=== PATIENT | male | born 1930 | race Caucasian/White ===

== ENCOUNTER 2016-08-07 14:52 | Inpatient (IN) | payer MEDICARE, OTHER ==
[~2016-08-07] VITALS: Ht 172.7 cm; Wt 157.9 kg
[2016-08-07] VITALS (7 sets, daily range): BP systolic 92–162; BP diastolic 50–91; PULSE 71–90; RESP 22–24; O2SAT 87–98
[2016-08-07] MEDS ORDERED: 0.9% Sodium Chloride (Chilled) 500 ML IV PRN (16:15)
[2016-08-07] MEDS ORDERED: Calcium GLUCOnate 10% (Gm) 1 Gm/10 mL Inj IV PRN (16:15)
[2016-08-07] MEDS ORDERED: Cisatracurium 2,000 mCg/mL 10 mL Inj IV PRN (16:15)
[2016-08-07] MEDS ORDERED: Senna-Docusate 8.6-50 mg Tablet PO PRN (16:15)
[2016-08-07] MEDS ORDERED: Acetaminophen IV 1,000 MG in IV Premix 1 EACH IV PRN (16:15)
[2016-08-07] MEDS ORDERED: Ondansetron 2 mg/mL 2 mL Inj IVPUSH PRN (16:15)
[2016-08-07] MEDS ORDERED: 0.9% Sodium Chloride (Chilled) 2,000 ML IV ONE (16:15)
[2016-08-07] MEDS ORDERED: Lactated Ringer's 1,000 ML IV PRN (16:15)
[2016-08-07] MEDS ORDERED: Alum-Mag Hydrox-Simeth 30 mL Suspension PO PRN (16:15)
[2016-08-07] MEDS ORDERED: Magnesium Sulf 4 Gm/100 mL H2O 4 GM in IV Premix 1 EACH IV PRN (16:15)
[2016-08-07] MEDS ORDERED: Polyethylene Glycol (PEG) 17 Gm Powder PO PRN (16:15)
[2016-08-07] MEDS ORDERED: Propofol 10,000 mCg/mL 100 mL Inj ONE (16:16)
[2016-08-07] MEDS ORDERED: fentaNYL 2,500 mCg/250 mL Premix IV ONE (16:18)
[2016-08-07] MEDS ORDERED: Sodium Chloride LOK Flush 10 mL Syringe IVFLUSH PRN ×2 (16:25)
[2016-08-07] MEDS: Propofol Inj 1,000,000 MCG in IV Premix 1 EACH IV PRN ×2 (16:30→20:12)
[2016-08-07] MEDS: fentaNYL 2,500 mCg/250 mL 2,500 MCG in IV Premix 1 EACH IV PRN (16:31)
--- NOTE | 2016-08-07 16:46 | ABG ---
DateTimeAnalyzed 16:41:00 -_ pH ____7.311 - 7.350 7.450 pCO2 ___58.1__ -mmHg 35.0 45.0 pO2 ___78.2__ -mmHg 69.0 116 HCO3- ___28.4__ -mmol/L 22.0 26.0 ABE ____1.0__ -mmol/L -2.0 2.0 tHb ___16.3__ -g/dL O2Hb ___91.2__ -% COHb ____1.3__ -% MetHb ____0.9__ -% sO2 ___93.3__ -% 25.0 FIO2 __100.0__ -% PEEP ____5.0__ -cmH2O Set_RR ___20.0__ -b/min Vt __500.0__ -L Drawn By NB - Date/Time Notified____ 16:46:00 -_ Spontaneous_RR ___24.0__ -b/min Oxygen Device 1 VENTILATOR - Notified By NB - Notified Whom ___DR. GODOY - B 762 -mmHg tO2 ___20.9__ -Vol% Zia test _Positive -
--- NOTE | 2016-08-07 17:41 | DRSVH ---
PROCEDURE: X-RAY PICC LINE PLACEMENT BY NURSE ([id number]) INDICATIONS: central line for pressors; IJ not available COMPARISON: None. FINDINGS: PICC was placed by the intravenous therapy team from the right side. Fluoroscopic spot fi lm demonstrates tip of PICC projecting in the cavoatrial. IMPRESSION: Tip of PICC lies within the cavoatrial junction. Dictated by: Robb Perez M.D. on 08/07/2016 at 17:39 Approved by: Robb Perez M.D. on 08/07/2016 at 17:40
[2016-08-07 17:48] LABS: BASOPHILS % (AUTO) 0.1 % (0-3); EOSINOPHILS % (AUTO) 0 % (0-5); MONOCYTES % (AUTO) 9.2 % (4-12); Mean Corpuscular Hemoglobin 32.2 pg (27.0-35.0); Mean Corpuscular Volume 105.6 fL (81-100); Platelet Count 168 bil/L (150-400)
[2016-08-07] MEDS ORDERED: Norepinephrine 8,000 mCg/250 mL NS Premix IV ONE (17:51)
[2016-08-07 18:02] LABS: INR 1.47 ratio
[2016-08-07 18:34] LABS: Magnesium 1.9 mg/dL (1.6-2.6); Phosphorus 4.4 mg/dL (2.5-4.9)
[2016-08-07 18:37] LABS: TROPONIN T 0.169 ug/L (0.0-0.011)
[2016-08-07] MEDS: Piperacillin-Tazo 3.375 Gm Inj 3.375 GM in Dextrose 5% Minibag Plus 50 ML IV SCH (19:02)
[2016-08-07] MEDS: 0.9% Sodium Chloride 1,000 ML IV SCH ×2 (19:02→20:11)
[2016-08-07] MEDS: 0.9% Sodium Chloride (Chilled) 1,000 ML IV PRN ×2 (19:03→20:11)
--- NOTE | 2016-08-07 19:08 | NUR ---
Admit: Pt found down at home by at approx 1100, CPR by EMS, intubated in field and sent to [facility]. Transferred to [facility] at approx 1630. On arrival, temp 36.8, no central line. Picc line placed, 2L chilled NS infused, cooling protocol initiated, current temp 34.9. Propofol/Fentanyl for sedation, see CCU flowsheet for details. at bedside, updated on plan of care, doesn't appear to understand severity of pt's condition despite multiple explanations. Care ongoing.
[2016-08-07] MEDS: Cisatracurium Inj 200,000 MCG in 0.9% Sodium Chloride-Pha MIX 100 ML IV SCH (20:10)
[2016-08-07] MEDS: Norepineph 8,000 mCg/250 mL NS 8,000 MCG in IV Premix 1 EACH IV PRN ×2 (20:10→20:58)
[2016-08-07] MEDS: LacriLube S.O.P. 3.5 Gm Ophthalmic Ointment BOTH_EYES SCH (20:30)
[2016-08-07] MEDS ORDERED: Insulin Human REGular Inj 100 UNIT in 0.9% Sodium Chloride-Pha MIX 100 ML IV SCH (20:44)
--- NOTE | 2016-08-07 20:54 | PCM.HPMED ---
Subjective Date of Service Aug 07, 2016 Primary Provider: Admitting Physician: Griselda Al DO Primary Care Physician: Kyle Maynard MD Attending Physician: Griselda Al DO Chief Complaint: Cardiac arrest History of Present Illness: 86 -year-old male with hypertension, hyperlipidemia, type II diabetes, and uncharacterized hepatitis, who transferred from [facility] after being found unconscious and in respiratory arrest by his . History is obtained by the . She states that this morning around 11:00 she went to check on her who is lying in bed and noticed his tongue was protruding from his mouth. She noticed he was not breathing and began CPR on the bed. She called 911 and EMS arrived reporting asystole. Patient was given 2 g of epinephrine with ROSC, intubated in the field, and transported to [facility]. On arrival the patient was not responsive. Cooling protocol was initiated, patient was placed on dopamine via peripheral line and transferred to [facility] was initiated. On arrival to [facility] it was noted that the patient did not have central line access , was warm and not sedated, and it was reported that the dopamine did not start running in transport. Prior to transfer it was requested that the patient undergo CT of the head which was reported as negative. Prior labs are in the paper chart. Patient was started on propofol, fentanyl, cooling protocol, and Nimbex and norepinephrine were ordered for standby. On interview with the she states that the patient has fallen twice last week. The first time was at the top of a staircase which he fell down after syncopal episode, but did not seek medical attention. The second time was outside of [facility] where he had a syncopal episode, hitting his head but did not seek medical attention. Per the the patient was also been stating that he is going to multiple times over this last week. She states that he has had a negative review of systems except for some abdominal pain due to his nighttime beer drinking. She states he drinks 2 beers per night. Review of Systems: Complete review of systems performed; pertinent positives and negatives per HPI ; all other systems reviewed and are negative Allergies Coded Allergies: No Known Allergies (Unverified , 08/07/16) Home Medications Med rec is currently being worked on; do not have current medication list [facility] Hypertension Hyperlipidemia Type II diabetes Uncharacterized hepatitis Psoriasis Surgical History none reported by ; attempts to reach her after she left the hospital were unsuccessful Family History patient intubated Social History Hx Alcohol Use: Yes Hx Substance Use: Yes Smoking Status: Never Smoker Living Arrangement: with Family Exam Vital Signs 36.8, 89, 24, 94/50 (65), 95%, FiO2 100 mechanical ventilation Exam General: Patient intubated and sedated HEENT: Pupils constricted but reactive; mucous membranes moist Lymph: Difficult to palpate due to obesity Cardio: Difficult to auscultate but appears regular Respiratory: Coarse breath sounds throughout Abdomen: morbidly obese; bowel sounds quiet Extremities: Advanced onychomycosis; moderate pitting edema Neuro: Patient sedated Psych: Patient sedated Skin: No rashes Musculoskeletal: Patient sedated and unable to follow commands Lab and Diagnostics X-Rays, CTs and MRIs From [facility] CTA chest 1 no pericardial effusion or mediastinal hematoma. Normal caliber of the thoracic aorta. Mediastinal widening on chest x-ray corresponds to prominent mediastinal fat. 2. Small bilateral pleural effusions with dependent atelectasis. 3. Arthrosclerosis including prominent coronary artery atherosclerosis. Read by Kyle Lawrence M.D. CT of the head 1. No intracranial bleed or mass effect. No acute findings Read by Kyle Lawrence M.D. Cervical spine without contrast 1. Multilevel degenerative disc disease cervical spine without evidence of cervical spine fracture Kyle Lawrence M.D. Assessment & Plan 86-year-old male who was found down by his and resuscitated in the field by EMS using epinephrine. Patient was intubated in the field and transferred to [facility] we underwent benign imaging started on cooling protocol that was interrupted due to transport. Acute hypoxic respiratory failure; present on admission; ongoing -Patient found down and intubated in the field; likely secondary to cardiac arrhythmia -Initial ABG at [facility] was 7.31, 58.1, 78.2, 28.4 on FiO2 of 100, PEEP of 5, respiratory rate of 20, and tied along the 500 -Adjustments were made to the vent and repeat ABG is pending Possible cardiac arrhythmia causing cardiac arrest; present on admission; ongoing -Patient has multiple syncopal episodes within the week as well as sense of impending doom -Patient was in 30 minutes before noted respiratory arrest; overall picture suggestive of arrhythmia -Initial troponin was elevated at 0.169; we will trend -EKG showed atrial fibrillation that [facility]; EKG pending -Cooling protocol reinitiated around 6 PM and ongoing -Nimbex, propofol, fentanyl, and norepinephrine -Blood cultures pending Acute kidney injury; present on admission; ongoing -Likely due to perfusion deficit or prerenal -Unknown baseline as this is the first time the patient has been to this hospital -Patient received fluid resuscitation -Will continue to track with BMPs during hypothermia protocol Anion gap metabolic acidosis; present on admission; ongoing -Lactic acid of 2.7 likely responsible for the AG of 15 -Patient received bolus of 1 L and NS -Will follow cooling protocol -blood cultures pending Acute leukocytosis; present on admission; ongoing -Patient arrived with a white count of 14 which is decreased from 15.2 at [facility] -Will continue to follow -Likely due to stress reaction Type II diabetes; present on admission; ongoing -Reported from [facility] -Patient on cooling protocol and insulin drip initiated -Will start basal and correctional once patient is off drip -Will check A1c Reported hepatitis with elevated transaminases and prolonged INR with possible cirrhosis; present on admission; ongoing -Patient's history is positive for hepatitis likely related to his chronic daily alcohol consumption, although disproportionate for acute hepatitis -Platelets 168, AST/berhane 20 141/136 -Hepatitis panel -US RUQ when off cooling Reported atrial fibrillation;present on admission; ongoing -EKG form [facility] reported at-fib -Repeat EKG had questionable junctional rhythm -Will follow Hypertension, chronic; present on admission; ongoing -Patient is currently hypotensive while on Nimbex, Propofol, and fentanyl Hyperlipidemia, chronic; present on admission; stable -Will continue home statins once med rec is completed Disposition: Patient admitted to the ICU with inpatient status with expected length of stay greater than 2 minutes due to severity of presentation, duration of treatment, and risk of adverse events. Information was severely limited due to records from [facility], and inability to contact after she left for the evening. left during patient intake and only a brief interview was possible. Case was discussed extensively with critical care (Dr. Conner). Pain Evaluation: Adequate Pain Control GI Prophylaxis: H2 joshua VTE Prophylaxis Indicated: Contraindicated Resuscitation Status: CPR: Attempt Resuscitation Time spent 90 minutes Attending Statement The patient was seen and examined together with Dr. Jimenez on 08/07/16 and I have added additional information to the note above. Corey Jimenez DO Aug 07, 2016 17:16 Griselda Al DO Aug 08, 2016 16:02
[2016-08-07] MEDS ORDERED: Dextrose 10% 250 ML IV PRN (21:05)
[2016-08-07] MEDS ORDERED: Glucose 40% Oral Gel 15 Gm Tube PO SCH (21:10)
--- NOTE | 2016-08-07 22:58 | ABG ---
DateTimeAnalyzed 22:52:00 -_ pH ____7.336 - pCO2 ___41.6__ -mmHg pO2 ___51.1__ -mmHg HCO3- ___21.6__ -mmol/L ABE ___-3.5__ -mmol/L tHb ___15.4__ -g/dL O2Hb ___79.8__ -% COHb ____1.1__ -% MetHb ____0.9__ -% sO2 ___81.4__ -% FIO2 __100.0__ -% PRVC 24 - PEEP ___12.0__ -cmH2O Vt __430.0__ -L Drawn By RN - Date/Time Notified____ 22:57:00 -_ Spontaneous_RR ___24.0__ -b/min Oxygen Device 1 VENTILATOR - Notified By BLF - Notified Whom JONA ARUNA RN -____ B 761 -mmHg tO2 ___17.2__ -Vol% Zia test N/A -
[2016-08-08] VITALS (11 sets, daily range): BP systolic 99–138; BP diastolic 59–77; PULSE 50–60; RESP 22–24; O2SAT 92–99
[2016-08-08] MEDS: Propofol Inj 1,000,000 MCG in IV Premix 1 EACH IV PRN ×5 (00:25→22:24)
[2016-08-08] MEDS: Piperacillin-Tazo 3.375 Gm Inj 3.375 GM in Dextrose 5% Minibag Plus 50 ML IV SCH ×4 (00:25→20:32)
[2016-08-08 02:09] LABS: Mean Corpuscular Hemoglobin 32.1 pg (27.0-35.0); Mean Corpuscular Volume 102.8 fL (81-100)
[2016-08-08 02:24] LABS: INR 1.84 ratio
[2016-08-08 02:31] LABS: Magnesium 1.8 mg/dL (1.6-2.6)
[2016-08-08 02:59] LABS: TROPONIN T 0.194 ug/L (0.0-0.011)
[2016-08-08] MEDS: Cisatracurium Inj 200,000 MCG in 0.9% Sodium Chloride-Pha MIX 100 ML IV SCH ×4 (03:38→22:55)
[2016-08-08] MEDS: 0.9% Sodium Chloride 1,000 ML IV SCH ×3 (04:03→22:08)
--- NOTE | 2016-08-08 05:15 | ABG ---
DateTimeAnalyzed 05:08:43 -_ pH ____7.390 - pCO2 ___34.7__ -mmHg pO2 ___40.3__ -mmHg HCO3- ___21.0__ -mmol/L 22.0 26.0 ABE ___-3.5__ -mmol/L tHb ___14.1__ -g/dL O2Hb ___70.0__ -% COHb ____1.3__ -% 1.5 MetHb ____0.1__ -% sO2 ___71.0__ -% FIO2 __100.0__ -% PRVC 24 - PEEP ___12.0__ -cmH2O Vt __430.0__ -L Drawn By RN - Date/Time Notified____ 05:15:00 -_ Spontaneous_RR 24 -b/min Oxygen Device 1 VENTILATOR - Notified By BLF - Notified Whom JONA ARUNA RN -____ K+ ____2.8__ -mmol/L tO2 ___13.9__ -Vol% Zia test N/A -
--- NOTE | 2016-08-08 05:21 | NUR ---
BP/RESP/BIS: At shift change pt's was hypotensive and Bis was 80-90s and would decrease with boluses of propofol. Pt was receiving fluid bolus for BP and cooling protocol. Pt was hard to ventilate and was alarming vent with low spo2. RT was called.Levophed was started and BP improved pt then received nimbex bolus and gtt was started at 2mcg/kg/min pt stopped moving and was easier to vent.. Levophed was titrated down and turned off as BP shot up to 190s/90s. approx 20min after nimbex bolus Bis was 0 monitor was trouble shoot and skin cleaned and new probe applied with same readings. Around 0300 pt required levophed and received NS bolus for low BP. BP then shot up and levo was stopped pt started having tremor like activity and Bis jumped up to 80s. Pt was give a bolus of nimbex and gtt was restarted Bis dropped back down to 0.
--- NOTE | 2016-08-08 07:13 | PCM.ADCARE ---
Advance Care Planning Note Plan: Purpose of encounter: Goals of care Parties in attendance: Patient's Dr. Al Diagnosis: Acute hypoxic respiratory failure Possible cardiac arrhythmia causing cardiac arrest Acute kidney injury Anion gap metabolic acidosis Acute leukocytosis Type II diabetes Reported hepatitis with elevated transaminases and prolonged INR with possible cirrhosis Reported atrial fibrillation Hypertension, chronic Hyperlipidemia, chronic Plan: The patient's is aware of the current diagnosis and would like to continue to be full code. The patient's understands that we will continue with intubation and pressors, and all measures involved with CPR. CODE STATUS: Full code Time spent with advanced care planning: Greater than 16 minutes Griselda Al DO Aug 08, 2016 07:13
[2016-08-08] MEDS: LacriLube S.O.P. 3.5 Gm Ophthalmic Ointment BOTH_EYES SCH ×5 (07:40→20:33)
[2016-08-08 08:18] LABS: Mean Corpuscular Hemoglobin 32.2 pg (27.0-35.0); Mean Corpuscular Volume 101.1 fL (81-100)
[2016-08-08 08:31] LABS: INR 1.55 ratio
[2016-08-08 08:52] LABS: Magnesium 1.7 mg/dL (1.6-2.6)
[2016-08-08 08:54] LABS: TROPONIN T 0.181 ug/L (0.0-0.011)
[2016-08-08] MEDS ORDERED: Artificial Tears 15 mL Ophthalmic Solution BOTH_EYES PRN (10:05)
--- NOTE | 2016-08-08 10:49 | NUR ---
Palliative Care Palliative Care received verbal order from Dr Huston 08/08/16 to assist with goals of care. Patient admitted 08/08/16. He lives in [place] with his . Clover Perera () [phone] Palliative Care to follow. Cielo Sanabria
--- NOTE | 2016-08-08 10:56 | DRSVH ---
PROCEDURE: X-RAY CHEST ONE VIEW, PORTABLE ([id number]) INDICATIONS: intubated TECHNIQUE: One view of the chest was acquired. COMPARISON: Outside Film, CR, XR CHEST 1VW (PORTABLE), 08/07/2016, 12:31. FINDINGS: Surgical changes and devices: ETT tip projected 2.4 cm above the jorge. A right PICC present projec michelle over the lower SVC. Lungs and pleura: Diffuse, widespread bilateral pulmonary interstitial and air space opacities are pr esent. Small right subpulmonic pleural effusion. No pneumothorax Mediastinum: Mediastinal contours appear normal. Heart size is normal. Bones and chest wall: No suspicious bony lesions. Overlying soft tissues appear unremarkable. Heal ed left seventh posterior lateral rib fracture. IMPRESSION: 1. Pulmonary edema and/or diffuse bilateral pneumonia. 2. ETT and right PICC in expected position. Dictated by: Shyam Solis [facility] Interpreted: Cheli Orosco MD on 08/08/2016 at 8:04 Approved by: Cheli Orosco M.D. on 08/08/2016 at 10:54
--- NOTE | 2016-08-08 11:02 | NUR ---
NUTRITION ASSESSMENT Assess: 86 YO M admitted to CCU with cardiac arrest, requiring intubation and currently on cooling protocol with plans to rewarm later this evening. Pt possibly having seizures. Pt has been NPO X 1 day. Palliative care consulted. PMHX: HTN, HLD, type 2 DM, psoriasis, hepatitis. DIET: NPO. LABS: BUN 57, Cr 2.93, Glu 147, Lactic acid 2.6, Ca 7.4, Phos 2.0, PAB 14, AST 136, ALT 130, Alb 2.8 MEDICATIONS: Nimbex, Propofol, Fentanyl, Pressor. GI: No BM noted. SKIN: No issues noted. ANTHROPOMETRICS: Wt: 138.6 kg, BMI 46.5 kg/m2, Admit wt: 138.6 kg. Adj. BW: 87.2 kg. ESTIMATED NEEDS: VENT/BMI Calories: 1520-2247 kcal/day (20-22 kcal/kg Adj. BW) Protein: 131-157 g/day (1.5-1.8 g/kg Adj. BW) Fluids: 2180 ml/day (~25 ml/kcal) NUTRITION DIAGNOSIS: 1) Inadequate oral intake related to decreased ability to consume sufficient energy as evidenced by NPO/Vent status. INTERVENTION: 1) Will await plan of care decisions. If pt remains intubated, recommend initiation of nutrition support. MONITOR/EVALUATE: NPO/Vent status, labs, POC, GI/nutrition status. Follow per high nutrition risk guidelines.
[2016-08-08] MEDS ORDERED: Magnesium Sulfate 2 Gm/50 mL Water Premix IV ONE (11:31)
[2016-08-08] MEDS: Famotidine Inj 20 MG in IV Premix 1 EACH IV SCH ×2 (11:43→20:32)
[2016-08-08] MEDS ORDERED: Chlorhexidine 0.12% 15 mL Oral Solution ONE (11:44)
--- NOTE | 2016-08-08 11:48 | PROG NOTE ---
[address] [address] PROGRESS NOTE PATIENT: MARK PANDA : 1930 MR#: [id number] ADMIT: 08/07/2016 JOB ID: [id number] DATE: 08/08/2016 PROBLEM: Asystolic cardiac arrest. SUBJECTIVE: None. OBJECTIVE: Temperature 33.2 on the cooling protocol. Pulse 54, respiratory rate 24 with ventilator set at 24. Blood pressure 120/71. O2 sat on FiO2 of 1, PEEP of 5, is 97%. I and O shows 1 L in, 0.025 mL out. Sedated and paralyzed on the ventilator. Chest has some coarse crackles throughout both lung reeder. Heart: Diminished breath sounds. Abdomen: Soft. Obese, quiet. Extremities: 2+ pretibial edema. Pupils are about 1 mm. Significant ecchymosis on the right. LABORATORY DATA: Shows a white count of 11,700, with no differential available. Hemoglobin 15.3. Platelet count 143,000, relatively stable. Sodium 145, potassium 3.9, chloride 110, CO2 is 18, BUN 56, creatinine 2.9 and stable. Lactic acid 1.9, down from a peak of 2.7. Calcium 7.1, albumin 2.6. Magnesium normal at 1.7. Total bilirubin normal at 0.5. AST mildly elevated at 124 and stable. ALT 118, moderately elevated and stable. CK is 219. Troponin-T is 0.181. INR 1.55. Blood culture is pending. MRSA nasal swab is negative by PCR. Sputum cultures are pending. Chest x-ray shows diffuse widespread interstitial and airspace opacities. Venous gases show a pH of 7.39, pCO2 of 34, bicarbonate 21. O2 saturation of mixed venous gases is 70%. ASSESSMENT: 1. Status post asystolic cardiac arrest. Unfortunately, cooling was delayed by the necessity for transfer. Currently cold. There has been some suggestion that he is having some seizures. I would therefore like to discontinue the Nimbex and see whether indeed he is seizing or not. If so, we will need to add Keppra, possibly Ativan to the medications. Unfortunately, this is pretty flat line. Whether this represents true brain activity or whether is an artifact of the technology is unclear at this point. 2. The patient with significant oxygen problems. However, sats are running in the mid 90s. I think we can decrease the FiO2. Pressure parameters are hard to evaluate in morbidly obese patients. It seems overall prognosis is quite poor. Remains cool until about eight o'clock tonight before we start rewarming. Above discussed with primary team. TIME SPENT: Time spent so far in critical care, 43 minutes.
--- NOTE | 2016-08-08 11:58 | ABG ---
DateTimeAnalyzed 11:46:40 -_ pH ____7.481 - 7.350 7.450 pCO2 ___27.8__ -mmHg 35.0 45.0 pO2 ___84.6__ -mmHg 69.0 116 HCO3- ___20.7__ -mmol/L 22.0 26.0 ABE ___-2.1__ -mmol/L tHb ___15.4__ -g/dL O2Hb ___96.0__ -% COHb ____1.3__ -% 1.5 MetHb ____0.0__ -% sO2 ___97.1__ -% FIO2 __100.0__ -% PRVC 24 - PEEP ___12.0__ -cmH2O Vt __440.0__ -L Drawn By gj - Date/Time Notified____ 11:58:00 -_ Spontaneous_RR 24 -b/min Oxygen Device 1 VENTILATOR - Notified By gj - Notified Whom ___DR. GODOY - K+ ____3.7__ -mmol/L tO2 ___20.7__ -Vol% Zia test _Positive -
[2016-08-08 14:03] LABS: Mean Corpuscular Hemoglobin 31.5 pg (27.0-35.0); Mean Corpuscular Volume 100.2 fL (81-100)
--- NOTE | 2016-08-08 14:03 | PCM.PNMED ---
Subjective Date of Service Aug 08, 2016 Subjective Trever Berry remains intubated and sedated on the ventilator, he has no response to external stimuli. No significant overnight events. Comprehensive ROS cannot be obtained in this intubated sedated patient on cooling protocol. Exam Vital Signs Vital Sign - Last Date Time Temp Pulse Resp B/P Pulse Ox O2 Delivery O2 Flow Rate FiO2 08/08/16 11:50 50 102/73 99 100 08/08/16 08:00 33.2 24 Mechanical Ventilator Intake and Output 08/07/16 08/07/16 08/08/16 Cumulative From/Thru 15:00 23:00 07:00 08/07/16 18:07 - 08/08/16 06:11 Intake Total 1036 ml 5895 ml 6931 ml Output Total 25 ml 75 ml 100 ml Balance 1011 ml 5820 ml 6831 ml Intake IV Total 1036 ml 5895 ml 6931 ml Output Urine Total 25 ml 75 ml 100 ml Exam GEN: Intubated and sedated patient, no response to external stimuli Neck: Short thick neck, R IJ in place HEENT: pupils miotic and non responsive, no movement tracking, ET tube in place , moderate facial edema CV: Very distant heart sounds due to habitus and overlying ventilator breath sounds Resp: Very coarse rhoncorous breath sounds throughout Abd: Morbidly obese abdomen, diminished BS 4Q Extr: Long hyperkeratotic toenails, cool extremities with weak peripheral pulses Neuro: Patient paralyzed and sedated, no response to external stimuli IVs and Medications IV Fluids NS @ 150 ml/hr 850 ml NS delivered with IV meds Medications Reviewed: Medications were reviewed in detail Lab and Diagnostics Item Value Date Time Red Blood Count 4.75 mil/mm3 08/08/16 08 Mean Corpuscular Volume 101.1 fL H 08/08/16 08 Mean Corpuscular Hemoglobin 32.2 pg 08/08/16 08 Mean Corpuscular Hemoglobin Concent 31.9 % L 08/08/16 08 Red Cell Distribution Width 16.2 % H 08/08/16 08 Estimat Glomerular Filtration Rate 22 mL/min 08/08/16 08 Lactic Acid Level 1.9 mmol/L 08/08/16 08 Calcium Level 7.1 mg/dL L 08/08/16 08 Magnesium Level 1.7 mg/dL 08/08/16 0800 Total Bilirubin 0.5 mg/dL 08/08/16 0800 Aspartate Amino Transf (AST/SGOT) 124 U/L H 08/08/16 0800 Alanine Aminotransferase (ALT/SGPT) 118 U/L H 08/08/16 08 Alkaline Phosphatase 38 U/L 08/08/16 08 Total Creatine Kinase 219 U/L 08/08/16 08 Creatine Kinase MB 9.0 ng/mL 08/08/16 08 Creatine Kinase MB % 4.1 % 08/08/16 08 Troponin T 0.181 ug/L *H 08/08/16 0800 Total Protein 4.8 g/dL L 08/08/16 08 Albumin 2.6 g/dL L 08/08/16 08 Result Diagram: 08/08/16 0808/08/16 08 Microbiology Blood cultures pending MRSA nasal swab pending X-Rays, CTs and MRIs CTA chest([facility]) 1 no pericardial effusion or mediastinal hematoma. Normal caliber of the thoracic aorta. Mediastinal widening on chest x-ray corresponds to prominent mediastinal fat. 2. Small bilateral pleural effusions with dependent atelectasis. 3. Arthrosclerosis including prominent coronary artery atherosclerosis. Read by Kyle Lawrence M.D. CT of the head([facility]) 1. No intracranial bleed or mass effect. No acute findings Read by Kyle Lawrence M.D. Cervical spine without contrast([facility]) 1. Multilevel degenerative disc disease cervical spine without evidence of cervical spine fracture Kyle Lawrence M.D. X-RAY CHEST ONE VIEW, PORTABLE IMPRESSION: 1. Pulmonary edema and/or diffuse bilateral pneumonia. 2. ETT and right PICC in expected position. Dictated by: Shyam Solis [facility] Interpreted: Cheli Orosco MD on 08/08/2016 at 8:04 Approved by: Cheli Orosco M.D. on 08/08/2016 at 10:54 . Additional Diagnostics DateTimeAnalyzed 11:46:40 -_ pH ____7.481 - 7.350 7.450 pCO2 ___27.8__ -mmHg 35.0 45.0 pO2 ___84.6__ -mmHg 69.0 116 HCO3- ___20.7__ -mmol/L 22.0 26.0 Assessment & Plan 86-year-old male who was found down by his and resuscitated in the field by EMS using epinephrine. Patient was intubated in the field and transferred to [facility] he underwent benign imaging started on cooling protocol that was interrupted due to transport. Patient with tonic clonic movements concerning for seizures, will plan to withdraw Nimbex to ascertain if there are underlying seizures. Acute hypoxic respiratory failure; present on admission; ongoing -Patient found down and intubated in the field; likely secondary to cardiac arrhythmia -Initial ABG at [facility] was 7.31, 58.1, 78.2, 28.4 on FiO2 of 100, PEEP of 5, respiratory rate of 20, and tidal volume 500 -Adjustments were made to the vent and ABG repeated with results as above. Possible cardiac arrhythmia causing cardiac arrest; present on admission; ongoing -Patient has multiple syncopal episodes within the week as well as sense of impending doom -Patient was down for 30 minutes before noted respiratory arrest; overall picture suggestive of arrhythmia -Initial troponin was elevated at 0.169; continue to trend -EKG showed atrial fibrillation that [facility] -Cooling protocol reinitiated around 6 PM 08/07/16 and, rewarming 8pm 08/08/16 -propofol, fentanyl, and norepinephrine -Nimbex will be briefly held to see if patient has underlying seizure activity -Blood cultures pending Acute kidney injury; present on admission; ongoing -Likely due to perfusion deficit or prerenal -Unknown baseline as this is the first time that patient has been admitted in this hospital -Patient received fluid resuscitation -Will continue to track with BMPs Anion gap metabolic acidosis; present on admission; improving -Lactic acid of 2.7 on presentation likely responsible for the AG of 15 -IVF as above -Will follow cooling protocol -blood cultures pending Acute leukocytosis; present on admission; ongoing -Patient arrived with a white count of 14 which is decreased from 15.2 at [facility] -Will continue to follow -Likely due to stress reaction Type II diabetes; present on admission; ongoing -Reported from [facility] -Patient on cooling protocol and insulin drip initiated -Will start basal and correctional once patient is off drip -A1c pending Reported hepatitis with elevated transaminases and prolonged INR with possible cirrhosis; present on admission; ongoing -Patient's history is positive for hepatitis likely related to his chronic daily alcohol consumption, although disproportionate for acute hepatitis -Platelets 168, AST/ALT 141/136 on presentation -Hepatitis panel pending -US RUQ when off cooling Reported atrial fibrillation;present on admission; ongoing -EKG form [facility] reported at-fib -Repeat EKG had questionable junctional rhythm -Will follow -Tele monitoring Hypertension, chronic; present on admission; ongoing -Patient is currently hypotensive while on Nimbex, Propofol, and fentanyl Hyperlipidemia, chronic; present on admission; stable -Will continue home statins once med rec is completed Morbid obesity, POA, chronic. Active -Will adjust medications accordingly -Complicates physical exam and auscultation Disposition: Patient with overall very poor prognosis, DC uncertain at this point with expiration in hospital a distinct possibility. Currently attempting rewarming and potential weaning trials from the vent. Pain Evaluation: Adequate Pain Control GI Prophylaxis: H2 joshua VTE Prophylaxis: Sub-Q Heparin (Unfractionated) VTE Mechanical Devices: Intermittant Pneumatic CD Resuscitation Status: CPR: Attempt Resuscitation Attending Statement The patient was seen and examined together with Dr. Huston on 08/08/2016 and I have added additional information to the note above. Mac Huston DO Aug 08, 2016 14:03 Griselda Al DO Aug 09, 2016 12:49
--- NOTE | 2016-08-08 14:10 | NUR ---
Social Work: Initial Assessment D: Per EMR review, pt is an 86 year old male admitted for Cardiac Arrest. Pt is Medicare with for Life Supplement. PCP is Kyle Maynard MD. NOK is Clover Perera, , . states that advanced directives not completed and wishes for patient to be full code. No RA score entered at this time. Pt discussed in CCU rounds. Pt is on day 1 of stay, vented and sedated on cooling protocol. Pt's neuro status remains unknown and will be determined once pt is re-warmed. BANKING ASSISTANT met with pt's spouse at bedside. Sw role explained and contact info provided. See initial assessment. Pt and spouse live in a two story home in [place]. Pt was previously using a walker for ambulation with reporting multiple falls. Pt has never had HH or skilled rehab. A: Pt who lives at home with his spouse. P: Evolving; BANKING ASSISTANT to continue to follow pt's clinical course and assess for discharge needs once pt is extubated. ARACELI Urbina Addendum: 08/08/16 at 1415 by JAVON ANGELA Amended: Links added.
[2016-08-08 14:21] LABS: INR 1.48 ratio
[2016-08-08 14:49] LABS: Magnesium 2.7 mg/dL (1.6-2.6)
[2016-08-08 14:58] LABS: TROPONIN T 0.188 ug/L (0.0-0.011)
[2016-08-08] MEDS ORDERED: Chlorhexidine 0.12% 15 mL Oral Solution MT PRN (15:30)
[2016-08-08] MEDS ORDERED: Chlorhexidine 0.12% 15 mL Oral Solution MT SCH (15:30)
--- NOTE | 2016-08-08 16:06 | ABG ---
DateTimeAnalyzed 15:58:22 -_ pH ____7.441 - 7.350 7.450 pCO2 ___29.7__ -mmHg 35.0 45.0 pO2 ___82.5__ -mmHg 69.0 116 HCO3- ___20.2__ -mmol/L 22.0 26.0 ABE ___-3.2__ -mmol/L tHb ___15.7__ -g/dL O2Hb ___95.2__ -% COHb ____1.3__ -% 1.5 MetHb ____0.0__ -% sO2 ___96.3__ -% FIO2 __100.0__ -% PRVC 24 - PEEP ___12.0__ -cmH2O Vt __440.0__ -L Drawn By gj - Date/Time Notified____ 16:06:00 -_ Spontaneous_RR 24 -b/min Oxygen Device 1 VENTILATOR - Notified By GJ - Notified Whom ___DR. GODOY - K+ ____3.7__ -mmol/L tO2 ___21.0__ -Vol% Zia test _Positive -
[2016-08-08] MEDS: Heparin 5,000 Unit/mL Inj SUBQ SCH ×2 (16:08→22:43)
--- NOTE | 2016-08-08 17:19 | NUR ---
Remains in cooling phase of the hypothermia protocol, maintaining temps 32.6-33.2. Nimbex off X2 hours per MD; have noted no seizure activity; cont'd Propofol and Fentanyl. BIS monitor, which has been reading "0" all day, is now reading "27". Received magnesium rider today per cooling protocol. Next labs at 8 p.m. ABGs noted, VENT rate changed to 22. Low dose Levophed maintaining MAPs above 65. Intermittent sinus patience - junctional rhythms. HR 40s, no ectopy. UOP 70 ml/12 hrs via patent gilmore cath. Urine is cloudy pink-navneet. No stool. Nystatin obtained for "yeasty" red, moist skin folds. Bedside blood glucoses 80-90s, no insulin indicated. here briefly this afternoon, updated, support provided. Palliative medicine to consult.
--- NOTE | 2016-08-08 17:47 | NUR ---
Donor referral aware of patient, will rule-out for any donation due to his age. Referral #[id number].
[2016-08-08] MEDS: Nystatin 100,000 Unit/Gm 15 Gm Powder TOPICAL SCH ×2 (18:13→20:33)
[2016-08-08] MEDS: LORazepam 100 mg/100 mL NS 100 MG in IV Premix 100 EACH IV SCH (18:39)
--- NOTE | 2016-08-08 19:03 | DRSVH ---
[facility] [address] [place] [address] Echocardiogram Report Name: MARK PANDA FStudy Date: 08/08/2016 Height: 68 in Hospital Exam Location: [facility] Weight: 306 lb Gender: Male BSA: 2.4 m2 : 1930 Age: 86 yrs BP: 116/59 mmHg Reason For Study: CARDIAC ARREST Ordering Physician: ANTONIA SANDERS R1 Performed By: Freddy Clayton Referring Physician: Josette MOHR Interpretation Summary 1. Normal left ventricular size with mild LVH and globally reduced LV systolic function which is somewhat difficult to estimate (estimated EF 30- 35%) 2. Mildly dilated right ventricle with moderately reduced systolic function. 3. Evidence for moderate to severe aortic stenosis with trace insufficiency There is no old study for comparison Procedure: A two-dimensional transthoracic echocardiogram with color flow and Doppler was performed. The study quality was technically difficult. There is no prior echocardiogram noted for this patient. The patient was in normal sinus rhythm during the exam. The patient was bradycardic with a heart rate of 50-61 beats per minute. Left Ventricle: The left ventricle is normal in size. There is mild concentric left ventricular hypertrophy. The ejection fraction is estimated to be 35-40%. Regional wall motion abnormalities cannot be excluded due to limited visualization. Right Ventricle: The right ventricle is mildly dilated. Right ventricular systolic function is moderately reduced. Atria: The left atrium is mildly dilated. The right atrium is moderately dilated. The interatrial septum is intact with no evidence for an atrial septal defect. Mitral Valve: The mitral valve leaflets are slightly calcified. The leaflets appear thickened. There is trace mitral regurgitation. Aortic Valve: The aortic valve is severely calcified. Leaflet mobility is moderate to severely reduced. The peak aortic velocity is 2.31 m/sec. The aortic valve mean gradient is 14.1 mmHg. The calculated aortic valve area is 0.96 cm2. There is moderate to severe aortic stenosis. Velocity gradient 0.26. There is trace aortic regurgitation. Tricuspid Valve: The tricuspid valve leaflets are thin and pliable. There is mild tricuspid regurgitation. Right ventricular systolic pressure is estimated to be 18 mmHg plus the clinically estimated CVP which cannot be estimated on this exam. Pulmonic Valve: The pulmonic valve is normal in structure and function. There is trace pulmonic regurgitation. Great Vessels: The aortic root is normal size. The ascending aorta is mildly enlarged. The diameter is 3.9 cm. The pulmonary artery is normal size. The IVC has a measurement of 26 mm. Inspiratory collapse cannot be assessed because of mechanical ventilation, thus CVP cannot be estimated.. Pericardium/ Pleura There is no pericardial effusion. There is no pleural effusion. MMode/2D Measurements & Calculations LVIDd: 4.9 cm LA dimension RA long axis: 6.6 cm LVOT diam: 2.2 cm LVIDs: 4.2 cm AoV Openin.45 cm FS: 13.9 % LA A2 area RA area: 28.4 cm Ao root diam: 2.9 cm EPSS: 1.2 cm RA vol: 103.5 ml Aortic Jxn: 2.6 cm IVSd: 1.2 cm RA : 42.3 ml/m2 asc Aorta Diam: 3.9 cm LVPWd: 1.3 cm LA A4 area LA length (vol) LA vol: 85.8 ml LA vol index IVC diam: 2.6 cm LVAd ap4 LVAd ap2 LV avilez. diameter/BSA LV sys. diameter/BSA : 20.9 2m : 17.3 cm (cm/m^2): 2.0 (cm/m^2): 1.7 LVLd ap2: 6.6 cm EDV(MOD-sp2) EDV(sp2-el) ESV(MOD-sp2) EF(MOD-sp2) RVD1 (basal) RVD2 (mid) : 4.7 cm Doppler Measurements & Calculations Ao V2 max: 231.5 cm/secMV E max javier MV E/A: 0.83 TR max javier Ao max P.4 mmHg : 49.9 cm/sec Med Peak E' Javier : 214.3 cm/sec Ao mean P.1 mmHg MV A max javier TR max PG LVOT Max Javier : 59.8 cm/sec E/E' med: 16.8 : 18.4 mmHg : 57.3 cm/sec MV A dur PA V2 max RODRIGUEZ(I,D): 0.96 cm : 0.12 sec : 30.1 cm/sec sev ratio: 0.25 PA mean PG : 0.26 mmHg PA Accel Time : 0.10 sec MV dec time: 0.26 sec Ao V2 mean LV V1 max PG PA V2 mean : 179.8 cm/sec : 25.3 cm/sec Ao V2 VTI: 56.8 cmLV V1 VTI PA pr(Accel) RODRIGUEZ(V,D): 0.95 cm2: 14.2 cm : 34.5 mmHg RODRIGUEZ indexed to BSA (cm^2/m^2): 0.39 Reading Physician:07:02 PM
[2016-08-08 20:24] LABS: Mean Corpuscular Hemoglobin 31.9 pg (27.0-35.0); Mean Corpuscular Volume 101.4 fL (81-100)
[2016-08-08 20:46] LABS: INR 1.52 ratio
[2016-08-08 20:52] LABS: Magnesium 1.6 mg/dL (1.6-2.6)
[2016-08-08 21:07] LABS: TROPONIN T 0.11 ug/L (0.0-0.011)
--- NOTE | 2016-08-08 21:22 | NUR ---
Respiratory/vent: Pt at beginning of shift was running low spo2 of 89-90%. After suctioning repositioning of pt check of equipment spo2 remains unchanged. RT was paged and informed of spo2. RT in and changes made to vent. Pt was placed on pressure control of 30/peep=12, Koi2=760%, peep=12, rate=22.
[2016-08-08] MEDS: Calcium GLUCO 10% (Gm) Inj 2 GM in 0.9% Sodium Chloride 50 ML IV PRN (21:53)
--- NOTE | 2016-08-08 21:57 | NUR ---
Labs: Calcium=5.9 with corrected calcium of 7.74 2gms of calcium gluconate was given. Magnesium was 1.6 and 4gms of magnesium was given. CKMB was 8.36 and Troponin was 0.110 both of these are trending down.
--- NOTE | 2016-08-08 22:49 | NUR ---
liver laceration: Pt was started on subq heparin 5000units L4mtumm. Dr Fletcher was notified and informed that pt has liver laceration that was wound yesterday on CT scan done at [facility]. Order received to hold heparin.
[2016-08-09] VITALS (11 sets, daily range): BP systolic 93–109; BP diastolic 52–73; PULSE 52–85; RESP 22; O2SAT 94–100
[2016-08-09] MEDS: LacriLube S.O.P. 3.5 Gm Ophthalmic Ointment BOTH_EYES SCH ×8 (00:39→21:56)
[2016-08-09] MEDS: Chlorhexidine 0.12% 15 mL Oral Solution MT SCH ×6 (00:39→21:57)
[2016-08-09 02:14] LABS: Hepatitis A Antibody IgM Negative (Negative); Hepatitis B Core Antibody IgM Negative (Negative)
[2016-08-09 02:14] LABS: BASOPHILS % (AUTO) 0.1 % (0-3); EOSINOPHILS % (AUTO) 0.4 % (0-5); MONOCYTES % (AUTO) 4.7 % (4-12); Mean Corpuscular Hemoglobin 32.8 pg (27.0-35.0); Mean Corpuscular Volume 101.5 fL (81-100); NEUTROPHILS % (AUTO) 83.7 % (40-74); Platelet Count 115 bil/L (150-400)
[2016-08-09 02:22] LABS: INR 1.44 ratio
[2016-08-09] MEDS: fentaNYL 2,500 mCg/250 mL 2,500 MCG in IV Premix 1 EACH IV PRN (02:31)
[2016-08-09 03:03] LABS: Magnesium 2.3 mg/dL (1.6-2.6); Phosphorus 2.4 mg/dL (2.5-4.9)
[2016-08-09] MEDS: Propofol Inj 1,000,000 MCG in IV Premix 1 EACH IV PRN ×7 (03:06→22:57)
[2016-08-09] MEDS: Calcium GLUCO 10% (Gm) Inj 2 GM in 0.9% Sodium Chloride 50 ML IV PRN (03:43)
--- NOTE | 2016-08-09 04:28 | ABG ---
DateTimeAnalyzed 04:21:21 -_ pH ____7.386 - 7.350 7.450 pCO2 ___30.7__ -mmHg 35.0 45.0 pO2 ___73.5__ -mmHg 69.0 116 HCO3- ___18.4__ -mmol/L 22.0 26.0 ABE ___-5.8__ -mmol/L tHb ___15.4__ -g/dL O2Hb ___92.6__ -% COHb ____1.2__ -% 1.5 MetHb ____0.0__ -% sO2 ___93.7__ -% FIO2 __100.0__ -% PRVC 22 - PEEP ___12.0__ -cmH2O Drawn By AF - Date/Time Notified____ 04:27:00 -_ Spontaneous_RR 22 -b/min Oxygen Device 1 VENTILATOR - Notified By AF - K+ ____3.9__ -mmol/L tO2 ___20.0__ -Vol% Zia test _Positive -
[2016-08-09] MEDS: 0.9% Sodium Chloride 1,000 ML IV SCH ×4 (05:01→20:03)
--- NOTE | 2016-08-09 06:03 | NUR ---
Nuero: Nimbex was titrated off at 0100 and ativan was titrate up to 3mg/hr. at around 0300 Bis jumped upto 40-50s and pt did withdrawal from pain, pupils were reactive to light, coughed with suctioning, and had upward babinski. Bis did spike up to the 70s fentanyl and propofol was increased.
[2016-08-09] MEDS ORDERED: Calcium GLUCO 10% (Gm) 1 Gm/10 mL 50 mL Inj IV ONE (06:45)
[2016-08-09 07:14] LABS: Hemoglobin A1C 6.4 % (4.8-5.6)
[2016-08-09] MEDS ORDERED: CALCIUM GLUCO IV ONE (07:35)
[2016-08-09] MEDS ORDERED: DEXTROSE 5% IV ONE (07:35)
--- NOTE | 2016-08-09 08:49 | ABG ---
DateTimeAnalyzed 08:41:19 -_ pH ____7.358 - pCO2 ___33.3__ -mmHg pO2 ___50.0__ -mmHg HCO3- ___18.7__ -mmol/L 22.0 26.0 ABE ___-6.1__ -mmol/L tHb ___14.8__ -g/dL O2Hb ___79.0__ -% COHb ____1.3__ -% 1.5 MetHb ____0.1__ -% sO2 ___80.2__ -% FIO2 __100.0__ -% PEEP ___12.0__ -cmH2O Set_RR 22 -b/min Vt __556.0__ -L Drawn By rn - Date/Time Notified____ 08:49:00 -_ Spontaneous_RR 22 -b/min Oxygen Device 1 VENTILATOR - Notified By RS - Notified Whom ___Dr. Parinie - K+ ____3.9__ -mmol/L tO2 ___16.4__ -Vol%
[2016-08-09] MEDS: Famotidine Inj 20 MG in IV Premix 1 EACH IV SCH ×2 (08:51→22:00)
[2016-08-09] MEDS: Piperacillin-Tazo 3.375 Gm Inj 3.375 GM in Dextrose 5% Minibag Plus 50 ML IV SCH ×2 (08:58→21:57)
[2016-08-09] MEDS ORDERED: levETIRAcetam Inj 1,500 MG in Dextrose 5% 100 ML IV ONE (09:35)
--- NOTE | 2016-08-09 10:12 | PROG NOTE ---
[address] [address] PROGRESS NOTE PATIENT: MARK PANDA : 1930 MR#: [id number] ADMIT: 08/07/2016 JOB ID: [id number] PULMONARY CRITICAL CARE PROGRESS NOTE: DATE: 08/09/2016 SUBJECTIVE: The patient is an 86-year-old man admitted with asystolic arrest, ARDS, now completing hypothermia protocol. The patient was seen and evaluated with resident physician, Dr. Ekaterina Eckert. Please refer to her separate detailed note for additional information. The following is a brief note. INTERVAL HISTORY: Remains on 100% FiO2, with low to medium dose norepinephrine. He is being re-warmed right now. He is on an Ativan drip for seizures. REVIEW OF SYSTEMS: Unable to obtain. PHYSICAL EXAMINATION: Vital signs reviewed. Most notable for FiO2 of 100%, PEEP of 14 cm. He is on pressure control of 30, with respiratory rate of 22. General: Intubated, sedated, unresponsive. Chest: Clear to auscultation. Heart: Regular rate, rhythm. LABORATORIES: Reviewed. WBC 11.3, hemoglobin 13.3, platelets 115. Chemistry also reviewed. Creatinine 2.6, BUN 51. Procalcitonin of 2.2, up from 1.2. Cultures: No growth to date. IMAGING: Chest x-ray shows dense bibasilar, right greater than left atelectasis and bilateral effusions. Arterial blood gas from this morning shows pH of 7.38, pCO2 of 30, pO2 of 73, and bicarb of 18. ASSESSMENT AND RECOMMENDATIONS: 1. Status post asystolic cardiac arrest on August 07, 2016. 2. Acute kidney injury. 3. Shock/hypotension. 4. Aspiration pneumonia. 5. Systemic inflammatory response syndrome (SIRS). This 86-year-old man presented in asystolic arrest after a couple of syncopal episodes, as an outpatient preceding this. He is just completing hypothermia protocol and reportedly showed some seizure activity a couple of days ago. He had been on Nimbex until last night, and this was discontinued and replaced with Ativan drip. At this point, I see no seizure activity, but I would like to start him on an antiseizure medication such as Keppra and wean off fentanyl, lorazepam primarily as well as propofol eventually. The benzodiazepines and narcotics will take a while to leave his system, but an accurate neurological exam would only be possible once these are discontinued. With regards to antibiotics, he is on Zosyn for aspiration pneumonia. Procalcitonin today is 2, up from 1.2 a couple of days ago. However, his white count is coming down and he has no other signs of ongoing infection, so we will just wait and repeat the procalcitonin tomorrow. He remains on norepinephrine at 0.07, but this is coming down as we remove the sedative drugs. I am going to see if it comes down enough that we can try some Lasix to diurese him. Oxygenation is quite poor, with FiO2 of 100% and PEEP of 14. Based on imaging including CT scan, this appears to be due to volume overload, pleural effusions and atelectasis, with some component of aspiration pneumonia. As above, I think diuresis would help, but his blood pressure probably would not tolerate it at this time. Will reassess later today. He is on no DVT prophylaxis because of the liver laceration detected on abdominal imaging. He is on famotidine for GI prophylaxis. He is a FULL CODE at this time. Palliative Care is in conversation with his , who is the legal next of kin. CRITICAL CARE TIME: 60 minutes.
--- NOTE | 2016-08-09 10:15 | NUR ---
NUTRITION FOLLOW-UP: Assess: 86 YO M admitted to CCU with cardiac arrest, requiring intubation and is currently re-warming. Pt possibly having seizures. Pt has been NPO X 2 day. Pt is to have a CT of his abdomen this morning due to concern for a liver laceration. Received verbal in morning rounds to start TF this am, unfortunately OGT was unable to be placed this AM. RN to re-try in the afternoon. Orders placed in paper chart in case tube is able to be placed overnight. RN is aware. PMHX: HTN, HLD, type 2 DM, psoriasis, hepatitis. DIET: NPO. LABS: Cl 110, CO2 15, BUN 51, Research Attorney 2.63, Glu 110, Ca 5.6, phos 2.4, AST 74, ALT 86, Alb 1.7 MEDICATIONS: Propofol currently running @ 24.8ml/hr to provide 654.7 kcal/day, Fentanyl, Pressor GI: No BM noted. SKIN: No issues noted. ANTHROPOMETRICS: Wt: 138.6 kg, BMI 46.5 kg/m2, Admit wt: 138.6 kg. Adj. BW: 87.2 kg, IBW: 70kg ESTIMATED NEEDS: VENT/BMI/SOUMYA Calories: 0851-1418 kcal/day (20-22 kcal/kg Adj. BW) Protein: 105-125 g/day (1.5-1.8 g/kg IBW) Fluids: 2180 ml/day (~25 ml/kcal) NUTRITION DIAGNOSIS: 1) Inadequate oral intake related to decreased ability to consume sufficient energy as evidenced by NPO/Vent status. --PERSISTS INTERVENTION: 1) Once OGT placed, recommend start TF of Glucerna 1.5@ 10ml/hr. If tolerated, recommend advance by 10ml q 6 hrs until reach goal rate of 40ml/hr to provide 1320kcal (1975kcal w/propofol) and 72g pro (100% kcal and 68% pro needs) 2) Adjust goal rate based on daily propofol rate 3) Once TF is tolerated at goal rate, recommend addition of 1 packet of prosource protein TID to better meet pts protein needs. MONITOR/EVALUATE: OG placed?, NPO/Vent status, labs, POC, GI/nutrition status. Follow per high nutrition risk guidelines. Addendum: 08/09/16 at [address] OGT was able to be placed this afternoon and TF has been started.
[2016-08-09] MEDS: Cisatracurium Inj 200,000 MCG in 0.9% Sodium Chloride-Pha MIX 100 ML IV SCH ×2 (11:46→19:46)
--- NOTE | 2016-08-09 14:11 | PCM.PNMED ---
Subjective Date of Service Aug 09, 2016 Subjective Patient remains intubated and sedated with no discernible response to external stimuli. Overnight the patient was weaned off of Nimbex which resulted in manifestation of likely underlying seizure activity. The patient was placed on an Ativan drip to resolve and potential seizure activity. This has since been weaned off and replaced with Keppra. Comprehensive ROS unable to be obtained in this intubated and sedated gentleman. Exam Vital Signs Vital Sign - Last Date Time Temp Pulse Resp B/P Pulse Ox O2 Delivery O2 Flow Rate FiO2 08/09/16 12:00 Ventilator 08/09/16 12:00 36.6 73 22 105/55 95 90 Intake and Output 08/08/16 08/08/16 08/09/16 Cumulative From/Thru 14:59 22:59 06:59 08/07/16 18:07 - 08/09/16 06:00 Intake Total 2477 ml 2798 ml 78836 ml Output Total 70 ml 150 ml 320 ml Balance 2407 ml 2648 ml 98928 ml Intake Oral 0 ml 0 ml IV Total 2477 ml 2798 ml 31111 ml Output Urine Total 70 ml 150 ml 320 ml # Bowel Movements 0 0 Exam GEN: Intubated and sedated patient, no response to external stimuli Neck: Short thick neck, R IJ in place HEENT: pupils miotic and non responsive, no movement tracking, ET tube in place , moderate facial edema CV: Very distant heart sounds due to habitus and overlying ventilator breath sounds Resp: Very coarse rhoncorous breath sounds throughout Abd: Morbidly obese abdomen, diminished BS 4Q Extr: Long hyperkeratotic toenails, cool extremities with weak peripheral pulses Neuro: Patient paralyzed and sedated, no response to external stimuli IVs and Medications IV Fluids NS @ 150 ml hr 470 ml NS delivered with IV meds Medications Reviewed: Medications were reviewed in detail Lab and Diagnostics Item Value Date Time Red Blood Count 4.05 mil/mm3 L 08/09/16 014 Mean Corpuscular Volume 101.5 fL H 08/09/16144 Mean Corpuscular Hemoglobin 32.8 pg 08/09/16144 Mean Corpuscular Hemoglobin Concent 32.4 % 08/09/16 014 Red Cell Distribution Width 16.4 % H 08/09/16 014 Neutrophils (%) (Auto) 83.7 % H 08/09/16 014 Lymphocytes (%) (Auto) 10.9 % L 08/09/16144 Monocytes (%) (Auto) 4.7 % 08/09/16144 Basophils (%) (Auto) 0.1 % 08/09/16144 Eosinophils (%) (Auto) 0.4 % 08/09/16144 Estimat Glomerular Filtration Rate 17 mL/min 08/09/16948 Calcium Level 7.3 mg/dL L 08/09/16948 Total Bilirubin 0.4 mg/dL 08/09/16948 Aspartate Amino Transf (AST/SGOT) 77 U/L H 08/09/16 09 Alanine Aminotransferase (ALT/SGPT) 101 U/L H 08/09/16948 Alkaline Phosphatase 36 U/L 08/09/16948 Total Protein 5.0 g/dL L 08/09/16948 Albumin 2.2 g/dL L 08/09/16948 Procalcitonin 2.25 ng/mL H 08/09/16144 Result Diagram: 08/09/1614408/09/16948 Microbiology Blood cultures negative at 24 hrs MRSA nasal swab negative . X-Rays, CTs and MRIs CTA chest([facility]) 1 no pericardial effusion or mediastinal hematoma. Normal caliber of the thoracic aorta. Mediastinal widening on chest x-ray corresponds to prominent mediastinal fat. 2. Small bilateral pleural effusions with dependent atelectasis. 3. Arthrosclerosis including prominent coronary artery atherosclerosis. Read by Kyle Lawrence M.D. CT of the head([facility]) 1. No intracranial bleed or mass effect. No acute findings Read by Kyle Lawrence M.D. Cervical spine without contrast([facility]) 1. Multilevel degenerative disc disease cervical spine without evidence of cervical spine fracture Kyle Lawrence M.D. X-RAY CHEST ONE VIEW, PORTABLE IMPRESSION: 1. Pulmonary edema and/or diffuse bilateral pneumonia. 2. ETT and right PICC in expected position. Dictated by: Shyam Solis [facility] Interpreted: Cheli Orosco MD on 08/08/2016 at 8:04 Approved by: Cheli Orosco M.D. on 08/08/2016 at 10:54 . Additional Diagnostics DateTimeAnalyzed 11:46:40 -_ pH ____7.481 - 7.350 7.450 pCO2 ___27.8__ -mmHg 35.0 45.0 pO2 ___84.6__ -mmHg 69.0 116 HCO3- ___20.7__ -mmol/L 22.0 26.0 Assessment & Plan 86-year-old male who was found down by his and resuscitated in the field by EMS using epinephrine. Patient was intubated in the field and transferred to [facility] he underwent benign imaging started on cooling protocol that was interrupted due to transport. Patient has not manifested any meaningful signs of response to external stimuli, sedation will be weaned off in order to ascertain if he manifests a hitherto repressed sign of neurologic function. Acute hypoxic respiratory failure; present on admission; ongoing -Patient found down and intubated in the field; likely secondary to cardiac arrhythmia -Initial ABG at [facility] was 7.31, 58.1, 78.2, 28.4 on FiO2 of 100, PEEP of 5, respiratory rate of 20, and tidal volume 500 -Adjustments were made to the vent and ABG repeated with results as above. -IVF to be titrated to MAP >65 -Tele monitoring -Repeat ABGs -Will wean back on sedation today to see if patient manifests overt neurologic activity -Palliative care consulted and is in discussion with patient's Possible cardiac arrhythmia causing cardiac arrest; present on admission; ongoing -Patient has multiple syncopal episodes within the week as well as sense of impending doom -Patient was down for 30 minutes before noted respiratory arrest; overall picture suggestive of arrhythmia -Initial troponin was elevated at 0.169; continue to trend -EKG showed atrial fibrillation that [facility] -Patient underwent cooling protocol, began rewarming 08/08 20:00 -propofol, fentanyl, and norepinephrine -Nimbex has been discontinued -Blood cultures negative at 24 hrs Acute kidney injury; present on admission; ongoing -Likely due to perfusion deficit or prerenal -Unknown baseline as this is the first time that patient has been admitted in this hospital -Patient received fluid resuscitation -Will continue to track with BMPs Anion gap metabolic acidosis; present on admission; improving -Lactic acid of 2.7 on presentation likely responsible for the AG of 15 -IVF as above -blood cultures negative at 24 hours Acute leukocytosis; present on admission; ongoing -Patient arrived with a white count of 14 which is decreased from 15.2 at [facility] -Will continue to follow -Likely due to stress reaction -Procalc is elevated with upward trend -Will continue Zosyn and observation Type II diabetes; present on admission; ongoing -Reported from [facility] -Will start basal and correctional once patient is off drip -A1c pending Reported hepatitis with elevated transaminases and prolonged INR with possible cirrhosis; present on admission; ongoing -Patient's history is positive for hepatitis likely related to his chronic daily alcohol consumption, although disproportionate for acute hepatitis -Platelets 168, AST/ALT 141/136 on presentation -Hepatitis panel negative -US RUQ with results pending Reported atrial fibrillation;present on admission; ongoing -EKG form [facility] reported at-fib -Repeat EKG had questionable junctional rhythm -Will follow -Tele monitoring Hypertension, chronic; present on admission; ongoing -Patient is currently hypotensive while on Nimbex, Propofol, and fentanyl -Weaning back sedation, will adjust BP meds to compensate for likely BP increase Hyperlipidemia, chronic; present on admission; stable -Will continue home statins once med rec is completed Morbid obesity, POA, chronic. Active -Will adjust medications accordingly -Complicates physical exam and auscultation Disposition: Patient with overall very poor prognosis, DC uncertain at this point with expiration in hospital a distinct possibility. Pain Evaluation: Adequate Pain Control GI Prophylaxis: H2 joshua VTE Prophylaxis: Sub-Q Heparin (Unfractionated) VTE Mechanical Devices: Intermittant Pneumatic CD Resuscitation Status: CPR: Attempt Resuscitation Attending Statement The patient was seen and examined together with Dr. Huston on 08/09/16 and I agree with the history, exam and plan as outlined in the note above. Mac Huston DO Aug 09, 2016 14:11 Griselda Al DO Aug 11, 2016 15:35
--- NOTE | 2016-08-09 14:30 | DRSVH ---
PROCEDURE: X-RAY CHEST ONE VIEW, PORTABLE ([id number]) INDICATIONS: intubated TECHNIQUE: One view of the chest was acquired. COMPARISON: [facility], CR, XR CHEST 1VW (PORTABLE), 08/08/2016, 5:35. FINDINGS: Surgical changes and devices: ETT tip projected 6.7 cm above the jorge similar to prior examination. Stable position right PICC. Lungs and pleura: Diffuse, widespread bilateral pulmonary interstitial and air space opacities are p resent similar to prior examination. Small basilar pleural effusions. No pneumothorax. Mediastinum: Mediastinal contours appear normal. Heart size is enlarged. Bones and chest wall: No suspicious bony lesions. Overlying soft tissues appear unremarkable. IMPRESSION: 1. Stable support lines and tubes. 2. Pulmonary edema and/or diffuse bilateral pneumonia redemonstrated. 3. Small pleural effusions. Dictated by: Shyam Solis [facility] Interpreted: Shelby Macario MD on 08/09/2016 at 8:36 Approved by: Shelby Macario MD, PhD on 08/09/2016 at 14:28
--- NOTE | 2016-08-09 14:31 | DRSVH ---
PROCEDURE: US ABDOMEN, LIMITED ([id number]) INDICATIONS: liver laceration/blood loss/hematoma? TECHNIQUE: Real-time focused scanning was performed of the abdomen, with image documentation. COMPARISON: [facility], CR, XR CHEST 1VW (PORTABLE), 08/09/2016, 11:22. Outside Film, CT , CT ABD PELVIS WO CON, 08/07/2016, 13:18. FINDINGS: Limited abdominal ultrasound demonstrates no definite hepatic subcapsular fluid as was sugg ested on previous CT scan. There is mild hepatic steatosis. Cholelithiasis redemonstrated without e vidence for cholecystitis. No biliary dilatation. Right kidney cyst redemonstrated measuring roughl y 46 mm. Trace right pleural effusion present. IMPRESSION: No definite sonographic abnormality seen involving the liver in this patient with history of prior he patic laceration. If indicated repeat CT could be performed for more accurate assessment. Cholelithiasis without evidence for cholecystitis. Right renal cyst redemonstrated. Trace right pleural effusion. Dictated by: Shyam Solis [facility] Interpreted: Shelby Macario MD on 08/09/2016 at 12:03 Approved by: Shelby Macario MD, PhD on 08/09/2016 at 14:29
--- NOTE | 2016-08-09 15:17 | NUR ---
Palliative care note [facility] D/A: Met with pt spouse as well as Dr. Martinez. She relates she is nervous about this conversation. She was caregiver to pt previous [place] spouse who some years ago. After being asked multiple times by pt to him, she agrees after she was able to start her own social security. She indicates that she also owns her own home. She relates strong history of significant decline in pt over past years. He used to be seen by Dr. Hull (no longer his PCP) and indicates that he "flunked" his memory test. She notes many episodes very recently of passing out. Possible ETOH history. Pt passed out in [facility] two days prior to admit. About the same time, he indicated to spouse "Theodore-I'm gonna ." She notes several episodes where he indicated very strongly to her that he did not wish for 911 to be called and instead told her that he wished to not return to acute care and wished to at home. He had an episode (recently) of blood in the toilet and he declined a medical visit. She did prevail upon him to seek care when he had pneumonia. About 4-5 days previous to current event, he stopped drinking fluids altogether. He was experiencing more SOB at home. Couple does not have children together. Spouse has a child in [place], not related to pt. Pt did not have children with his previous spouse. He does have elderly siblings (sisters 91, 87 and possibly 82.) He has recently expressed thoughts that his sisters are stealing from him. One of his sisters lives in [place]. Spouse indicates that he completed new will when to her but does not recall if he completed DPOA or advance directive. Spouse has a sister in [place] who is of support to her. Dr. Martinez outlines that pt has potentially suffered significant brain damage and that the medical team is worried that he may not be able to survive. Spouse becomes distraught and begs Dr. Martinez to not turn off machines. Spouse is reminded that pt had expressed strongly that he wished to at home and did not wish to receive acute care services. Expressed that medical team will continue to gather information about pt function. Arrange to meet spouse again on 08/10/16 between 1300 and 1400. Note that spouse may need many, repeated explanations of pt current condition and possible prognosis. She asked several times if he could discharge on and if he would be able to walk. It appears to be more helpful to phrase that pt may not survive this event. Spouse is encouraged to call her sister masha to get support. She is not able to indicate if she has a local support match-[employer]-n[employer]-she-wish band. P: Palliative care to continue to follow. CON Oneill Addendum: 08/09/16 at 1535 by ISIDRO DAVIDSON SS PC note amendment Please note as well that spouse has [place] Palsy which impairs her ability to communicate as clearly as she would like. Claudia NGUYỄN CCM
[2016-08-09] MEDS ORDERED: 0.9% Sodium Chloride 500 ML IV PRN (16:05)
[2016-08-09] MEDS: LORazepam 100 mg/100 mL NS 100 MG in IV Premix 100 EACH IV SCH (16:41)
--- NOTE | 2016-08-09 17:25 | PCM.CONPAL ---
Date of Service Aug 09, 2016 Date of Hospital Admission: Aug 07, 2016 at 16:02 Date of Palliative Consult: Aug 09, 2016 Requesting Provider: Griselda Al DO Comment: Dr. Alberto Reason Palliative Care Consult: Goals of Care Discussion Hospital Unit @time of consult: Critical Care Palliative Care Recommendation Summary of palliative recommendations: -Symptom management (Pain/other) ventilator dependent and unarousable after cardiac arrest. Suspect baseline dysrhythmia with multiple syncopal episodes prior. No evidence for seizure activity at this time -DPOA/Advanced Directives/POLST-unclear if any of this paperwork has been completed. Decision making would fall by default to his -Family/emotional support-his describes very little in social support. She talks to her sister who lives in [place]. 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 We will review again tomorrow with his and team Problems: End of Life Preferences Remains full code Disposition To be determined Resuscitation Status Resuscitation Status: CPR: Attempt Resuscitation Pt History History of Present Illness History obtained from chart and from his Patient's medical management has been on [facility] - little past history is available . Patient is intubated and majority of the interaction and discussion is with his Clover. 86 -year-old male with hypertension, hyperlipidemia, type II diabetes, and uncharacterized hepatitis, who transferred from [facility] after being found unconscious and in respiratory arrest by his . History is obtained by the . She states that this morning around 11:00 she went to check on her who is lying in bed and noticed his tongue was protruding from his mouth. She noticed he was not breathing and began CPR on the bed. She called 911 and EMS arrived reporting asystole. Patient was given 2 g of epinephrine with ROSC, intubated in the field, and transported to [facility]. On arrival the patient was not responsive. Cooling protocol was initiated, patient was placed on dopamine via peripheral line and transferred to [facility] was initiated. Patient apparently had multiple syncopal spells over the past week or so. His also relates at least one episode of alicja rectal bleeding. He had refused to allow his to call 911 with any syncopal episodes. [place] one occurred at [facility] and at least one episode at home prior to the admitting event. He had mentioned to her that he thought he was going to sometime this past week. She had noticed increasing memory challenges which included some degree of paranoia - such as his or sisters taking his money. She has noticed decreased by mouth intake, chronic shortness of breath but worsening. She has not noticed significant edema. He has 3 sisters age ranging 82-91. He apparently has one brother. He apparently was over 10 years ago after 40 years of marriage to a [place] woman. Unclear how he met his present but they in 2008. She states this was her fifth marriage. She describes having separate finances from his and states that he has completed a will but is unclear if that included DURABLE POWER OF [employer]IATE for healthcare or advanced directive. Past Medical History Significant PMH Noted: Hypertension Hyperlipidemia Probable early dementia Onychomycosis Obesity Diabetes 2 Heart disease but details unclear from his Surgeries unknown Social History Occupation: Retired - long-term resident of [facility] Family Members Issues: No children Social Support: His Living Situation: lives with his Spiritual Support Spiritual Support Neither patient nor his involved in a adventism or orthodox Allergy Allergies Reviewed: Yes Medications Current Medications: Current Medications Mineral Oil/ Lanolin Oil 1 applic 1 applic BID BOTH_EYES; Start 08/07/16 at 20: 30 Cisatracurium Besylate 255894 mcg/Sodium Chloride 200 ml @ 24.94 mls/ hr Q8H2M IV Last administered on 08/08/16 22:55; Admin Dose 24.94 MLS/HR; Start at 19:36 Insulin Human Regular 100 unit/ Sodium Chloride 101 ml @ 0 mls/hr Q0M IV; Start 08/07/16 at 20:44 Dextrose/Water 125 ml @ 750 mls/hr Q10M PRN IV; Start 08/07/16 at 21:05 Piperacillin Sod/ Tazobactam Sod/ Dextrose/Water 50 ml @ 12.5 mls/hr Q12 IV Last administered on 08/09/16 08:58; Admin Dose 12.5 MLS/HR; Start 08/08/16 at 08:30; Stop 08/12/16 at 20:31 Artificial Tears 1-2 Drops Q2H PRN BOTH_EYES Last administered on 08/08/16 20: 33; Admin Dose 2 DROP; Start 08/08/16 at 10:05 Mineral Oil/ Lanolin Oil 1 applic 1 applic Q4 BOTH_EYES Last administered on 17:02; Admin Dose 1 APPLIC; Start 08/08/16 at 12:30 Famotidine/Sodium Chloride/Premix 50 ml @ 100 mls/hr Q12 IV Last administered on 08/09/16 08:51; Admin Dose 100 MLS/HR; Start 08/08/16 at 10:08 Heparin Sodium (Porcine) 5,000 unit Q8 SUBQ Last administered on 08/08/16 16:08 ; Admin Dose 5,000 UNIT; Start 08/08/16 at 16:30; Stop 08/08/16 at 23:01; Status DC Chlorhexidine Gluconate 15 ml Q4H MT; Start 08/08/16 at 15:30; Stop 08/08/16 at 15:30; Status DC Chlorhexidine Gluconate 15 ml Q4H PRN MT Last administered on 08/08/16 16:08; Admin Dose 15 ML; Start 08/08/16 at 15:30; Stop 08/08/16 at 20:45; Status DC Nystatin 1 applic 1 applic BID TOPICAL Last administered on 08/08/16 20:33; Admin Dose 1 APPLIC; Start 08/08/16 at 20:30 Lorazepam/Sodium Chloride/Premix 100 ml @ 0.5 mls/hr Q24H IV Last administered on 08/08/16 18:39; Admin Dose 0.5 MLS/HR; Start 08/08/16 at 17:59 Chlorhexidine Gluconate 15 ml 15 ml Q4 MT Last administered on 08/09/16 17:02; Admin Dose 15 ML; Start 08/09/16 at 00:30 Levetriacetam 500 mg/Dextrose/Water 105 ml @ 420 mls/hr BID IV; Start 08/09/16 at 20:30 Sodium Chloride 500 ml @ 0 mls/hr Q0M PRN IV; Start 08/09/16 at 16:05 Objective Findings Exam Vital Sign - Last Date Time Temp Pulse Resp B/P Pulse Ox O2 Delivery O2 Flow Rate FiO2 08/09/16 16:07 84 98/59 97 100 08/09/16 16:00 Ventilator 08/09/16 16:00 37.0 22 Intake and Output 08/08/16 08/08/16 08/09/16 Cumulative From/Thru 15:00 23:00 07:00 08/07/16 18:07 - 08/09/16 06:00 Intake Total 2477 ml 2798 ml 16993 ml Output Total 70 ml 150 ml 320 ml Balance 2407 ml 2648 ml 10232 ml Intake Oral 0 ml 0 ml IV Total 2477 ml 2798 ml 59955 ml Output Urine Total 70 ml 150 ml 320 ml # Bowel Movements 0 0 General: Unresponsive, Chemically sedated Heart: Regular Rate/Rhythm Lungs: Clear to Percussion Abdomen: Soft, Other (obese) Lab/Diagnostics Lab and Imaging results reviewed in detail in EMR. Bicarbonate of 15, mild elevation of transaminases, INR 1.5, mild macrocytosis Patient/Family Conference Members Present Family Members Present Patient's Medical Team Members Present? Mao Madison MSW PC Discussion/Goals of Care Discussion FAMILY UNDERSTANDING OF DISEASE: Patient obtunded and unarousable. His has little understanding of severity of disease. She was totally surprised by the thought of significant brain damage and that he would not be able to walk again. She still believes she can take him home and care for him. DISEASE PROGRESSION/EVIDENCE OF DECLINE: SYMPTOM BURDEN: Had moderate symptom burden at baseline with shortness of breath , recurrent syncope, developing dementia GOALS: Tried to review patient's expressed desires to not be taken to the hospital which communicated to his . Reviewed also his expressed desires that he did not want to be an invalid. Reviewed with his our goal to follow his wishes. Reviewed more details in the next 24 hours as he is tapered on his medications. At this time he is ventilator dependent and unarousable HOPES/WORRIES: His hopes that he can have a full recovery. Reviewed this very unlikely with his poor prognostic indicators at this time. Time spent Total time 70 minutes; >50% face to face with patient and/or family, providing counselling regarding plans and recommendations, and in care coordination with his/her medical teams. I also spent an additional [ ] minutes counseling for advanced care planning with the patient/the patients family/the surrogate decision maker. copies to: Kyle Maynard MD; Biju Hull MD, Deborah A MD Aug 09, 2016 17:25 counselling regarding plans and recommendations, and in care coordination with his/her medical teams. I also spent an additional [ ] minutes counseling for advanced care planning with the patient/the patients family/the surrogate decision maker. Dinora Martinez MD Aug 09, 2016 17:25
--- NOTE | 2016-08-09 17:54 | NUR ---
Sedation/Respiratory/Hemodynamics/Tube Feed/Activity Patients sedation has been titrated down as tolerated. Ativan turned off per Dr Alberto. Fentanyl down to 30 mcg/hr, and Propofol was down to 20 mcg/kg/min, but patient began to drop his sats to 89-91%, lunsford the vent, and bite down on the ET tube. After many attempts to suction patient to get sats up, Propofol was titrated back up to 40 which was recommended by MD. Fentanyl remains at 30. With the increase in Propofol, norepi is back up to 0.08 mcg/kg/min. Vent is on pressure control at 100% FIO2, Peep 14, Rate 22, with pc of 30/peep. Sats are currently 94%. Suctioning thick sweeney/yellow secretions. Lungs decreased t/o and occasionally wheezy. With the increase in Propofol again, the Norepi is back at .08 mcg/kg/min. BP currently is currently 101/58, MAP 68. UOP this shift, 250 mls. Noted generalized edema. Patient reached a temp of 36.8 c. at around 1200 today. Maintaing temp at 37 c now. OGT was placed, xrayed, and tube feeds started at 10 ml/hr with a goal of 40. Patient was placed on continuous bed rotation at 70%, both right and left, Tolerating well. Tilting side to side as well. Using ceiling lift to move patient. Monitoring closely.
[2016-08-09] MEDS: Norepineph 8,000 mCg/250 mL NS 8,000 MCG in IV Premix 1 EACH IV PRN (18:22)
[2016-08-09] MEDS: Nystatin 100,000 Unit/Gm 15 Gm Powder TOPICAL SCH (21:57)
[2016-08-09 23:57] LABS: Magnesium 2.1 mg/dL (1.6-2.6); Phosphorus 3.3 mg/dL (2.5-4.9)
[2016-08-10] VITALS (12 sets, daily range): BP systolic 75–176; BP diastolic 47–100; PULSE 68–87; RESP 22–28; O2SAT 92–98
[2016-08-10] MEDS: Propofol Inj 1,000,000 MCG in IV Premix 1 EACH IV PRN ×5 (02:13→21:18)
[2016-08-10] MEDS: Chlorhexidine 0.12% 15 mL Oral Solution MT SCH ×6 (02:13→20:48)
[2016-08-10] MEDS: LacriLube S.O.P. 3.5 Gm Ophthalmic Ointment BOTH_EYES SCH ×8 (02:13→20:47)
[2016-08-10] MEDS: 0.9% Sodium Chloride 1,000 ML IV SCH ×3 (03:22→16:36)
[2016-08-10] MEDS: Cisatracurium Inj 200,000 MCG in 0.9% Sodium Chloride-Pha MIX 100 ML IV SCH ×3 (03:50→19:54)
[2016-08-10 04:09] LABS: Magnesium 2.6 mg/dL (1.6-2.6)
--- NOTE | 2016-08-10 05:23 | ABG ---
DateTimeAnalyzed 05:16:03 -_ pH ____7.332 - 7.350 7.450 pCO2 ___34.6__ -mmHg 35.0 45.0 pO2 ___43.9__ -mmHg 69.0 116 HCO3- ___18.3__ -mmol/L 22.0 26.0 ABE ___-6.9__ -mmol/L tHb ___13.9__ -g/dL O2Hb ___73.1__ -% COHb ____1.3__ -% 1.5 MetHb ____0.2__ -% sO2 ___74.2__ -% FIO2 __100.0__ -% Pressure_Support ___30.0__ -cmH2O PEEP ___14.0__ -cmH2O Set_RR 22 -b/min Drawn By MK - Oxygen Device 1 VENTILATOR - K+ ____4.1__ -mmol/L tO2 ___14.2__ -Vol% Zia test _Positive -
[2016-08-10 06:31] LABS: BASOPHILS % (AUTO) 0.1 % (0-3); EOSINOPHILS % (AUTO) 0.6 % (0-5); MONOCYTES % (AUTO) 6.7 % (4-12); Mean Corpuscular Hemoglobin 31.9 pg (27.0-35.0); Mean Corpuscular Volume 99.8 fL (81-100); NEUTROPHILS % (AUTO) 80.2 % (40-74); Platelet Count 112 bil/L (150-400)
--- NOTE | 2016-08-10 06:33 | NUR ---
Sedation/Respiratory/Hemodynamics/Tube Feed/Activity: Pt required occasional bolus of propofol to relax pt was alarming vent. Pt not tolerating turns well starts coughing face turns reddish purple and desats down into upper 70s and take 15 minutes or to recover. Tube feeds tolerated well residuals 10mls and 15mls. pt did require 3 500mls bolus of NS for low BP during the night.
[2016-08-10 06:42] LABS: INR 1.24 ratio
[2016-08-10 06:47] LABS: Phosphorus 4.1 mg/dL (2.5-4.9)
[2016-08-10] MEDS: Famotidine Inj 20 MG in IV Premix 1 EACH IV SCH ×2 (08:30→20:48)
[2016-08-10] MEDS: Piperacillin-Tazo 3.375 Gm Inj 3.375 GM in Dextrose 5% Minibag Plus 50 ML IV SCH ×2 (08:31→20:48)
[2016-08-10] MEDS: Nystatin 100,000 Unit/Gm 15 Gm Powder TOPICAL SCH ×2 (08:31→20:47)
[2016-08-10] MEDS ORDERED: Albumin 25% 50 GM in IV Premix 1 EACH IV ONE (08:40)
[2016-08-10] MEDS ORDERED: Furosemide 10 mg/mL 10 mL Inj IVPUSH ONE ×2 (08:40→11:35)
--- NOTE | 2016-08-10 09:38 | DRSVH ---
PROCEDURE: X-RAY CHEST ONE VIEW, PORTABLE ([id number]) INDICATIONS: OG TUBE PLACEMENT TECHNIQUE: One view of the chest was acquired. COMPARISON: [facility], CR, XR CHEST 1VW (PORTABLE), 08/09/2016, 5:18. FINDINGS: Surgical changes and devices: Stable position of ETT and right PICC. Nasogastric tube is in place an d the tip is not well seen on current exam. Lungs and pleura: Diffuse, widespread bilateral pulmonary interstitial and air space opacities are p resent similar to prior examination. Small pleural effusions. No pneumothorax. Mediastinum: Mediastinal contours appear normal. Heart size is normal. Bones and chest wall: No suspicious bony lesions. Overlying soft tissues appear unremarkable. IMPRESSION: Placement of nasogastric tube and the tube tip is not well-seen on the current exam other prakash no change in edema and/or diffuse bilateral pneumonia. Dictated by: Shyam RODARTE Interpreted: Kika Estrada MD on 08/09/2016 at 12:34 Approved by: Kika Estrada M.D. on 08/10/2016 at 9:36
--- NOTE | 2016-08-10 10:28 | NUR ---
NUTRITION FOLLOW-UP: Assess: 86 YO M admitted to CCU with cardiac arrest, requiring intubation and is currently re-warming. Pt possibly having seizures. Pt was able to have TF started 08/09. TF is currently running at goal of 40ml/hr. No BM recorded x3 days. Wt has increased ~20 since admit due to fluids. PMHX: HTN, HLD, type 2 DM, psoriasis, hepatitis. DIET: NPO. LABS: Cl 110, CO2 15, BUN 60, Industrial Chemistry Teacher 3.96, Glu 125, Ca 7.0, ALT 70, Alb 2.1 MEDICATIONS: Propofol currently running @ 24.8ml/hr to provide 654.7 kcal/day, Fentanyl, Pressor, lasix, albumin GI: No BM noted. SKIN: No issues noted. NUTRITION SUPPORT: Glucerna 1.5 @ 40ml/hr providing 1320kcal (1975kcal w/propofol) and 72g pro (100% kcal and 68% pro needs) ANTHROPOMETRICS: Wt: 157.9 kg, BMI 52.9 kg/m2, Admit wt: 138.6 kg. Adj. BW: 87.2 kg, IBW: 70kg ESTIMATED NEEDS: VENT/BMI/SOUMYA (based on admit wt) Calories: 4796-5815 kcal/day (20-22 kcal/kg Adj. BW) Protein: 105-125 g/day (1.5-1.8 g/kg IBW) Fluids: 2180 ml/day (~25 ml/kcal) NUTRITION DIAGNOSIS: 1) Inadequate oral intake related to decreased ability to consume sufficient energy as evidenced by NPO/Vent status. --PERSISTS INTERVENTION: 1) Continue current TF at goal rate of 40ml/hr 2) Adjust goal rate based on daily propofol rate 3) Will add of 1 packet of prosource protein TID to better meet pt's protein needs 08/11 4) Will monitor for BM. Recommend daily bowel meds be added MONITOR/EVALUATE: NPO/Vent status, TF james, BM labs, POC, GI/nutrition status. Follow per high nutrition risk guidelines.
[2016-08-10] MEDS: Heparin 5,000 Unit/mL Inj SUBQ SCH ×2 (10:46→16:37)
--- NOTE | 2016-08-10 11:01 | PROG NOTE ---
[address] [address] PROGRESS NOTE PATIENT: MARK PANDA : 1930 MR#: [id number] ADMIT: 08/07/2016 JOB ID: [id number] DATE: 08/10/2016 PULMONARY CRITICAL CARE PROGRESS NOTE: The patient is an 86-year-old gentleman, admitted on August 07, 2016, with asystolic arrest, now with refractory ARDS and kidney injury. The patient was seen and evaluated with resident physician, Dr. Ekaterina Eckert. Please refer to her separate detailed note for additional information. INTERVAL HISTORY: We attempted decreasing his sedation yesterday, but he had some brief desaturation, because of which, the sedation was increased back up. He has been off the Ativan drip, but is still on fentanyl and propofol. Kidney function continues to worsen. REVIEW OF SYSTEMS: Unable to obtain. PHYSICAL EXAMINATION: Vital signs reviewed. Afebrile. FiO2 of 100% and PEEP of 14 cm. General: Morbidly obese gentleman, lying in bed, unresponsive. Chest: Clear to auscultation. Abdomen: Firm and distended. LABORATORY DATA: Labs reviewed. WBC 10.8. Chemistry notable for creatinine up to 3.96, from 3.43, and BUN up to 60. Potassium 4.1. Bicarbonate of 15. Procalcitonin is up slightly to 2.34. Chest x-ray reviewed and shows worsening bibasilar infiltrates and bilateral effusions. Venous blood gas from this morning shows pH 7.33, pCO2 of 34, pO2 of 43, which is a venous, and a bicarb of 18. ASSESSMENT AND RECOMMENDATIONS: 1. Asystolic arrest on August 07, 2016. 2. Acute kidney injury. 3. Hypotension/shock. 4. Aspiration pneumonia. 5. Acute respiratory distress syndrome. An 86-year-old man presenting with asystolic arrest completed hypothermia protocol and re-warming as of yesterday. He reportedly showed some seizure activity a couple of days ago, but we have not seen any more of this now. He received Keppra yesterday, and Ativan was weaned off completely, but remains on fentanyl and low-dose propofol. Neurologically, he is still comatose and completely unresponsive, but I am not entirely certain that the drugs are unrelated to this. With regards to his respiratory status, he is on 100% oxygen and 14 cm of PEEP. The primary cause appears to be ARDS/volume overload with bilateral large pleural effusions and significant volume overload. He is on normal saline infusion, which we will stop. We are going to give him 60 mg of Lasix push, along with albumin, to try to get some volume off. He is almost off vasopressors, on a very low-dose norepinephrine at 0.06 at this point. If he tolerates this, I would like to continue with the Lasix drip at a [id number] dose. We turned off his fentanyl and left him on a low dose of propofol today. With regards to worsening kidney function, I am not sure that there is much we can do to change this at this point, other than diurese him a little bit. Palliative Care has been involved in conversations with his , who is originally [place] speaking. There appears to be some difficulty in communication and understanding from his , who is under the impression that the patient will recover and go home with her in the next couple of days. They are going to speak with her again with a medical device today. I am hopeful that, with the sedation off, we will get a better idea of neurologic status by tomorrow at the most. In the meantime, if his respiratory status and kidney function continue to get worse, then I think chances of him surviving this are extremely low. He is on GI prophylaxis, and DVT prophylaxis needs to be started because there is no evidence of liver laceration on repeat imaging here. At this point, he is a FULL CODE. CRITICAL CARE TIME: 45 minutes.
--- NOTE | 2016-08-10 11:36 | DRSVH ---
PROCEDURE: X-RAY CHEST ONE VIEW, PORTABLE ([id number]) INDICATIONS: intubated TECHNIQUE: One view of the chest was acquired. COMPARISON: [facility], CR, XR CHEST 1VW (PORTABLE), 08/09/2016, 5:18. [facility], CR, XR CHEST 1VW (PORTABLE), 08/09/2016, 11:22. FINDINGS: Surgical changes and devices: Stable position the ETT and right IJ CVL. Nasogastric tube tip not wel l seen. Lungs and pleura: Diffuse, widespread bilateral pulmonary interstitial and air space opacities are p resent no significant change from prior exam. A small pleural effusions also unchanged. No pneumoth orax. Mediastinum: Mediastinal contours appear normal. Heart size is enlarged. Bones and chest wall: No suspicious bony lesions. Overlying soft tissues appear unremarkable. IMPRESSION: 1. Support lines and tubes are stable in position. 2. Pulmonary edema and/or diffuse bilateral pneumonia not significantly changed and small pleural eff usions persist. Dictated by: Shyam Solis [facility] Interpreted: Renetta Doe MD on 08/10/2016 at 9:06 Approved by: Renetta Doe M.D. on 08/10/2016 at 11:34
[2016-08-10] MEDS ORDERED: DEXTROSE 5% IVPUSH ONE (11:50)
[2016-08-10] MEDS ORDERED: FUROSEMIDE IVPUSH ONE (11:50)
[2016-08-10 13:50] LABS: Magnesium 2.4 mg/dL (1.6-2.6)
--- NOTE | 2016-08-10 13:54 | PCM.PNMED ---
Subjective Date of Service Aug 10, 2016 Subjective Patient continues to be intubated and sedated with no discernible response to external stimuli. Overnight the patient was titrated up on sedation, likely due to biting ET tube and fasciculations. Comprehensive ROS unable to be obtained in this intubated and sedated gentleman. Exam Vital Signs Vital Sign - Last Date Time Temp Pulse Resp B/P Pulse Ox O2 Delivery O2 Flow Rate FiO2 08/10/16 12:50 97 75/50 98 100 08/10/16 12:00 37.7 28 Mechanical Ventilator Intake and Output 08/09/16 08/09/16 08/10/16 Cumulative From/Thru 15:00 23:00 07:00 08/07/16 18:07 - 08/10/16 06:06 Intake Total 3689 ml 4761 ml 90751 ml Output Total 250 ml 350 ml 920 ml Balance 3439 ml 4411 ml 28362 ml Intake Oral 0 ml IV Total 3689 ml 4392 ml 72650 ml Tube Feeding 289 ml 289 ml Tube Irrigant 80 ml 80 ml Output Urine Total 250 ml 350 ml 920 ml # Bowel Movements 0 Exam GEN: Intubated and sedated patient, no response to external stimuli Neck: Short thick neck, R IJ in place HEENT: pupils miotic and non responsive, no movement tracking, ET tube in place , moderate facial edema CV: Very distant heart sounds due to habitus and overlying ventilator breath sounds Resp: Very coarse rhoncorous breath sounds throughout Abd: Morbidly obese abdomen, diminished BS 4Q Extr: Long hyperkeratotic toenails, cool extremities with weak peripheral pulses Neuro: Patient paralyzed and sedated, no response to external stimuli IVs and Medications IV Fluids 1.2 L NS delivered with IV meds Medications Reviewed: Medications were reviewed in detail Lab and Diagnostics Item Value Date Time Red Blood Count 4.32 mil/mm3 L 08/10/16619 Mean Corpuscular Volume 99.8 fL 08/10/16619 Mean Corpuscular Hemoglobin 31.9 pg 08/10/16619 Mean Corpuscular Hemoglobin Concent 32.0 % 08/10/16619 Red Cell Distribution Width 16.9 % H 08/10/16619 Neutrophils (%) (Auto) 80.2 % H 08/10/16619 Lymphocytes (%) (Auto) 12.1 % L 08/10/16619 Monocytes (%) (Auto) 6.7 % 08/10/16619 Eosinophils (%) (Auto) 0.6 % 08/10/16619 Basophils (%) (Auto) 0.1 % 08/10/16619 Estimat Glomerular Filtration Rate 15 mL/min 08/10/16619 Calcium Level 7.0 mg/dL L 08/10/16619 Phosphorus Level 4.1 mg/dL 08/10/16619 Total Bilirubin 0.4 mg/dL 08/10/16619 Aspartate Amino Transf (AST/SGOT) 45 U/L 08/10/16619 Alanine Aminotransferase (ALT/SGPT) 70 U/L H 08/10/16619 Alkaline Phosphatase 36 U/L 08/10/16619 Total Protein 4.5 g/dL L 08/10/16619 Albumin 2.1 g/dL L 08/10/16619 Procalcitonin 2.34 ng/mL H 08/10/16 0310 Result Diagram: 08/10/1661908/10/16619 Microbiology Blood cultures negative at 24 hrs MRSA nasal swab negative . X-Rays, CTs and MRIs CTA chest([facility]) 1 no pericardial effusion or mediastinal hematoma. Normal caliber of the thoracic aorta. Mediastinal widening on chest x-ray corresponds to prominent mediastinal fat. 2. Small bilateral pleural effusions with dependent atelectasis. 3. Arthrosclerosis including prominent coronary artery atherosclerosis. Read by Kyle Lawrence M.D. CT of the head([facility]) 1. No intracranial bleed or mass effect. No acute findings Read by Kyle Lawrence M.D. Cervical spine without contrast([facility]) 1. Multilevel degenerative disc disease cervical spine without evidence of cervical spine fracture Kyle Lawrence M.D. X-RAY CHEST ONE VIEW, PORTABLE IMPRESSION: 1. Support lines and tubes are stable in position. 2. Pulmonary edema and/or diffuse bilateral pneumonia not significantly changed and small pleural effusions persist. Dictated by: Shyam Solis RRA Interpreted: Renetta Doe MD on 08/10/2016 at 9:06 Approved by: Renetta Doe M.D. on 08/10/2016 at 11:34 . Additional Diagnostics US ABDOMEN, LIMITED IMPRESSION: No definite sonographic abnormality seen involving the liver in this patient with history of prior hepatic laceration. If indicated repeat CT could be performed for more accurate assessment. Cholelithiasis without evidence for cholecystitis. Right renal cyst redemonstrated. Trace right pleural effusion. Dictated by: Shyam Solis RRA Interpreted: Shelby Macario MD on 08/09/2016 at 12:03 Approved by: Shelby Macario MD, PhD on 08/09/2016 at 14:29 VBG pH ____7.332 - 7.350 7.450 pCO2 ___34.6__ -mmHg 35.0 45.0 pO2 ___43.9__ -mmHg 69.0 116 HCO3- ___18.3__ -mmol/L 22.0 26.0 Assessment & Plan 86-year-old male who was found down by his and resuscitated in the field by EMS using epinephrine. Patient was intubated in the field and transferred to [facility] he underwent benign imaging started on cooling protocol that was interrupted due to transport. Patient has not manifested any meaningful signs of response to external stimuli, sedation will be weaned off in order to ascertain if he manifests a hitherto repressed sign of neurologic function. Acute hypoxic respiratory failure; present on admission; ongoing -Patient found down and intubated in the field; likely secondary to cardiac arrhythmia -Initial ABG at [facility] was 7.31, 58.1, 78.2, 28.4 on FiO2 of 100, PEEP of 5, respiratory rate of 20, and tidal volume 500 -Adjustments were made to the vent and ABG repeated with results as above. -IVF and pressors to be titrated to MAP >65 -Tele monitoring -Repeat serial ABGs -Will wean back on sedation to see if patient manifests overt neurologic activity -Palliative care consulted and is in discussion with patient's who appears to have poor insight into the severity of his disease process Possible cardiac arrhythmia causing cardiac arrest; present on admission; ongoing -Patient has multiple syncopal episodes within the week as well as sense of impending doom -Patient was down for 30 minutes before noted respiratory arrest; overall picture suggestive of arrhythmia -Initial troponin was elevated at 0.169; downward trend -EKG showed atrial fibrillation at [facility] -Patient underwent cooling protocol, began rewarming 08/08 20:00 -propofol, fentanyl, and norepinephrine; will wean down -Nimbex has been discontinued -Blood cultures negative at 48 hrs Acute kidney injury; present on admission; ongoing -Likely due to perfusion deficit or prerenal -Unknown baseline as this is the first time that patient has been admitted in this hospital -Fluid resuscitation on admission -Will continue to track with BMPs Anion gap metabolic acidosis; present on admission; improving -Lactic acid of 2.7 on presentation likely responsible for the AG of 15 -IVF as above -blood cultures negative at 48 hours Acute leukocytosis; present on admission; ongoing -Patient arrived with a white count of 14 which is decreased from 15.2 at [facility] -Will continue to follow -Likely due to underlying community acquired pneumonia -Procalc is elevated and initially uptrending, now normalizing -Will continue Zosyn to cover possible aspiration component Type II diabetes; present on admission; ongoing -Reported from [facility] -Blood glucose has been stable without correction -A1c 6.4 Reported hepatitis with elevated transaminases and prolonged INR with possible cirrhosis; present on admission; ongoing -Patient's history is positive for hepatitis likely related to his chronic daily alcohol consumption, although disproportionate for acute hepatitis -Platelets 168, AST/ALT 141/136 on presentation, now trending towards normal -Hepatitis panel negative -US RUQ does not demonstrate previously described hepatic laceration, results as above Reported atrial fibrillation;present on admission; ongoing -EKG form [facility] reported at-fib -Repeat EKG had questionable junctional rhythm -Will follow -Tele monitoring Hypertension, chronic; present on admission; ongoing -Patient is currently hypotensive while on Propofol, and fentanyl, fentanyl titrating down -Weaning back sedation, will adjust BP meds to compensate for likely BP increase Hyperlipidemia, chronic; present on admission; stable -Will continue home statin Morbid obesity, POA, chronic. Active -Will adjust medications accordingly -Complicates physical exam and auscultation Disposition: Patient with overall very poor prognosis, DC uncertain at this point with expiration in hospital a distinct possibility. Pain Evaluation: Adequate Pain Control GI Prophylaxis: H2 joshua VTE Prophylaxis: Sub-Q Heparin (Unfractionated) VTE Mechanical Devices: Intermittant Pneumatic CD Resuscitation Status: CPR: Attempt Resuscitation Mac Huston DO Aug 10, 2016 13:54
[2016-08-10] MEDS: LORazepam 100 mg/100 mL NS 100 MG in IV Premix 100 EACH IV SCH (16:37)
--- NOTE | 2016-08-10 16:45 | NUR ---
Remains on vent support. Increased HR, RR, BP, tremors, decreased sats with sedation vacation, improved when resumed. MD aware. EEG being done now; sedation is off. Sinus rhythm on tele, frequent PACs. here, updated by Palliative medicine. TFs at goal, scant residuals. No BM. UAP 22, reported to MD. Abd appears obese, somewhat distended appearing. Blood sugars within goal, no insulin coverage. Remains unresponsive. Does not appear uncomfortable.
--- NOTE | 2016-08-10 17:09 | PCM.PNMED ---
Subjective Date of Service Aug 10, 2016 Subjective CRITICAL CARE PROGRESS NOTE, ATTENDING: DR DENILSON Perera is an 86-year-old male status post cardiac arrest and cooling protocol without meaningful neurological response. Overnight: No acute events Today: The patient continues to be intubated with minimum sedation without response. ROS is not obtainable. Exam Vital Signs Vital Sign - Last Date Time Temp Pulse Resp B/P Pulse Ox O2 Delivery O2 Flow Rate FiO2 08/10/16 12:50 97 75/50 98 100 08/10/16 12:00 37.7 28 Mechanical Ventilator Intake and Output 08/09/16 08/09/16 08/10/16 Cumulative From/Thru 15:00 23:00 07:00 08/07/16 18:07 - 08/10/16 06:06 Intake Total 3689 ml 4761 ml 50200 ml Output Total 250 ml 350 ml 920 ml Balance 3439 ml 4411 ml 85778 ml Intake Oral 0 ml IV Total 3689 ml 4392 ml 43456 ml Tube Feeding 289 ml 289 ml Tube Irrigant 80 ml 80 ml Output Urine Total 250 ml 350 ml 920 ml # Bowel Movements 0 Exam GEN: Intubated and sedated patient, no response to external stimuli Neck: Short thick neck, R IJ in place without evidence of bleeding or infection HEENT: pupils miotic and non responsive, no movement tracking, ET tube in place , OG tube in place, moderate facial edema CV: Very distant heart sounds due to habitus and overlying ventilator breath sounds Resp: Very coarse rhoncorous breath sounds throughout, distant breath sounds due to habitus Abd: Morbidly obese abdomen, diminished bowel sounds Extr: Long hyperkeratotic toenails, cool extremities with weak peripheral pulses Neuro: Patient paralyzed and sedated, no response to external stimuli IVs and Medications Medications Reviewed: Medications were reviewed in detail Lab and Diagnostics Result Diagram: 08/10/16 0620 08/10/16 1322 Microbiology Blood cultures negative at 24 hrs MRSA nasal swab negative X-Rays, CTs and MRIs CTA chest([facility]) 1 no pericardial effusion or mediastinal hematoma. Normal caliber of the thoracic aorta. Mediastinal widening on chest x-ray corresponds to prominent mediastinal fat. 2. Small bilateral pleural effusions with dependent atelectasis. 3. Arthrosclerosis including prominent coronary artery atherosclerosis. Read by Kyle Lawrence M.D. CT of the head([facility]) 1. No intracranial bleed or mass effect. No acute findings Read by Kyle Lawrence M.D. Cervical spine without contrast([facility]) 1. Multilevel degenerative disc disease cervical spine without evidence of cervical spine fracture Kyle Lawrence M.D. X-RAY CHEST ONE VIEW, PORTABLE IMPRESSION: 1. Support lines and tubes are stable in position. 2. Pulmonary edema and/or diffuse bilateral pneumonia not significantly changed and small pleural effusions persist. Dictated by: Shyam LUNA Interpreted: Renetta Doe MD on 08/10/2016 at 9:06 Additional Diagnostics US ABDOMEN, LIMITED IMPRESSION: No definite sonographic abnormality seen involving the liver in this patient with history of prior hepatic laceration. If indicated repeat CT could be performed for more accurate assessment. Cholelithiasis without evidence for cholecystitis. Right renal cyst redemonstrated. Trace right pleural effusion. Dictated by: Shyam LUNA Interpreted: Shelby Macario MD on 08/09/2016 at 12:03 Approved by: Shelby Macario MD, PhD on 08/09/2016 at 14:29 VBG pH ____7.332 - 7.350 7.450 pCO2 ___34.6__ -mmHg 35.0 45.0 pO2 ___43.9__ -mmHg 69.0 116 HCO3- ___18.3__ -mmol/L 22.0 26.0 Assessment & Plan Jamal Perera is an 86-year-old male status post cardiac arrest and cooling protocol without meaningful neurological response complicated with ARDS and SOUMYA. Acute hypoxic respiratory failure secondary to cardiac arrest complicated by ARDS and volume overload -Initial ABG at [facility] was 7.31, 58.1, 78.2, 28.4 on FiO2 of 100, PEEP of 5, respiratory rate of 20, and tidal volume 500 -Continues to require significant amounts of FiO2 100% and PEEP of 14 -Given 60 mg IV Lasix with Albumin 50 mg with only mild response. Will repeat Lasix with 120 mg IV x1 and reassess. Consider initiating Lasix drip. -Palliative care consulted and is in discussion with patient's who appears to have poor insight into the severity of his disease process Cardiac arrest, status post cooling protocol -Patient was down for 30 minutes before noted respiratory arrest; overall picture suggestive of arrhythmia -Propofol, Fentanyl for sedation, will titrate down -Norepinephrine for BP support with MAP goal >65 Acute kidney injury, worsening -Will attempt diuresis as above Encephalopathy likely secondary to hypoxic brain injury versus sedative medications -EEG today -Titrate off sedating medications Anion gap metabolic acidosis -Lactic acid of 2.7 on presentation likely responsible for the AG of 15 -IVF as above -blood cultures negative at 48 hours Aspiration pneumonia -Procalcitonin is elevated and initially uptrending, now normalizing -Will continue Zosyn to cover possible aspiration component Prophylaxis GI: Famotidine DVT: Heparin GI Prophylaxis: H2 joshua VTE Prophylaxis: Sub-Q Heparin (Unfractionated) VTE Mechanical Devices: Intermittant Pneumatic CD Resuscitation Status: CPR: Attempt Resuscitation Attending Statement I have seen and examined this patient with the resident physician. Vital signs , labs, imaging have been reviewed. I agree with the assessment and plan above. Please refer to my separately dictated progress note for any modifications to above. Nanci Alberto M.D. Pulmonary and Critical Care medicine Pager [phone] Ekaterina Eckert DO Aug 10, 2016 16:09 Nanci Alberto MD Aug 10, 2016 17:15
--- NOTE | 2016-08-10 17:59 | PCM.PALLBR ---
Palliative Care Recommendation Summary of palliative recommendations: 08/10/16- Obtundation/unresponsive s/p cardiopulm arrest on vent with multisystem ds Still on sedation but has very poor prognosis with time down, found in asystole, now with possible sz activity vs myoclonus and not awakening with drop in meds. ARF worsening and suspect had at baseline due to initial labs. Mild to moderate hepatic dysfxn-based on labs I suspect this is chronic.?ETOH Cardiac dysfxn with probable pulm edema-goal is to diurese if tolerated by BP GOC-patient had indicated a number of times to his that he did not want o come into the hospital and that he wanted to at home. We have no documents confirming this. Discussion with his - she continues to have limited understanding on the limits of care if he is not going to be able to recover. She acknowledges he did not want to be in hospital or on "machines" but then will state she wants him on vent even if no likelihood of neuro recovery. She has also picked a seemingly arbitrary day--August 23-to keep him on the vent etc. She states she understands tamazight well and is adamant that she does not want an advertising manager for possible discussion of w/d of care in the next 1-2 days. Plan will be to have another discussion once sedation is off and neuro review. Pt may define his own fate but at this time is FULL CODE-although nearly at max of treatment. -Symptom management (Pain/other) ventilator dependent and unarousable after cardiac arrest. Suspect baseline dysrhythmia with multiple syncopal episodes prior. No evidence for seizure activity at this time -DPOA/Advanced Directives/POLST-unclear if any of this paperwork has been completed. Decision making would fall by default to his -Family/emotional support-his describes very little in social support. She talks to her sister who lives in [place]. 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 We will review again tomorrow with his and team Problems: End of Life Preferences Remains full code Disposition To be determined Resuscitation Status Resuscitation Status: CPR: Attempt Resuscitation Total time 60 minutes; >50% face to face with patient and/or family, providing counselling regarding plans and recommendations, and in care coordination with his/her medical teams. Included discussion with his and with team. I also spent an additional [ ] minutes counseling for advanced care planning with the patient/the patients family/the surrogate decision maker. Palliative Brief Note Date of Service Aug 10, 2016 . Patient is seen and examined. Case/care reviewed with Dr. Alberto, Dr. Jimenez Family care conference with his . O:obese He remains on vent and sedation. With taper, desat'ed so sedation increased-- now decreasing again. On Keppra CR increasing to 3.96, HCO3 15, albumin 2.1 CXR c/w pulm edema Dinora Martinez MD Aug 10, 2016 17:59
[2016-08-10] MEDS: Norepineph 8,000 mCg/250 mL NS 8,000 MCG in IV Premix 1 EACH IV PRN ×2 (21:54→23:51)
[2016-08-11] VITALS (7 sets, daily range): BP systolic 93–108; BP diastolic 53–61; PULSE 75–86; RESP 22; O2SAT 92–96
[2016-08-11] MEDS: Heparin 5,000 Unit/mL Inj SUBQ SCH ×2 (00:12→08:27)
[2016-08-11] MEDS: Propofol Inj 1,000,000 MCG in IV Premix 1 EACH IV PRN ×4 (00:12→11:34)
[2016-08-11] MEDS: Chlorhexidine 0.12% 15 mL Oral Solution MT SCH ×4 (00:12→11:34)
[2016-08-11] MEDS: LacriLube S.O.P. 3.5 Gm Ophthalmic Ointment BOTH_EYES SCH ×5 (00:12→11:34)
[2016-08-11] MEDS: Cisatracurium Inj 200,000 MCG in 0.9% Sodium Chloride-Pha MIX 100 ML IV SCH ×2 (03:56→08:20)
--- NOTE | 2016-08-11 04:26 | ABG ---
DateTimeAnalyzed 04:19:34 -_ pH ____7.299 - 7.350 7.450 pCO2 ___31.5__ -mmHg 35.0 45.0 pO2 ___76.4__ -mmHg 69.0 116 HCO3- ___15.4__ -mmol/L 22.0 26.0 ABE __-10.0__ -mmol/L tHb ___13.9__ -g/dL O2Hb ___93.1__ -% COHb ____1.3__ -% 1.5 MetHb ____0.0__ -% sO2 ___94.3__ -% FIO2 __100.0__ -% Pressure_Support ___30.0__ -cmH2O PEEP ___14.0__ -cmH2O Set_RR 22 -b/min Drawn By MK - Oxygen Device 1 VENTILATOR - Notified Whom fuimanano - K+ ____4.0__ -mmol/L tO2 ___18.2__ -Vol% Zia test _Positive -
[2016-08-11 05:51] LABS: BASOPHILS % (AUTO) 0.1 % (0-3); EOSINOPHILS % (AUTO) 0.8 % (0-5); MONOCYTES % (AUTO) 6.7 % (4-12); Mean Corpuscular Hemoglobin 32.1 pg (27.0-35.0); Mean Corpuscular Volume 98.4 fL (81-100); NEUTROPHILS % (AUTO) 81.6 % (40-74); Platelet Count 110 bil/L (150-400)
--- NOTE | 2016-08-11 06:25 | NUR ---
Respiratory/GI: Pt did not tolerate position changes very well. Pt would get agitated lunsford the vent and desat down into mid 80s and required 15-20min to recover. Pt had very large liquid stool which FMS was placedto control stool. Pt also had to large red areas to left distal buttocks and left upper back thigh which looked like moralez a foam dressing was applied over both areas.Pt also had thick cream colored sputum from ETT which looked a lot like tube feeds. tube feeds were stopped.
[2016-08-11 06:29] LABS: INR 1.15 ratio
[2016-08-11 06:35] LABS: Magnesium 2.5 mg/dL (1.6-2.6); Phosphorus 5.8 mg/dL (2.5-4.9)
[2016-08-11] MEDS: Nystatin 100,000 Unit/Gm 15 Gm Powder TOPICAL SCH (08:19)
[2016-08-11] MEDS: Piperacillin-Tazo 3.375 Gm Inj 3.375 GM in Dextrose 5% Minibag Plus 50 ML IV SCH (08:19)
[2016-08-11] MEDS: Famotidine Inj 20 MG in IV Premix 1 EACH IV SCH (08:27)
--- NOTE | 2016-08-11 09:15 | PCM.PNMED ---
Subjective Date of Service Aug 11, 2016 Subjective The patient underwent EEG yesterday, the results of which were very discouraging and essentially reinforce the clinical picture which is that this likely is a terminal event for this unfortunate patient. Efforts are ongoing to communicate the reality of this situation to the patient's spouse Overnight nursing noted that the oral suctioning produced copious amounts of what appeared to be Tube feed material suggestive that he was not processing the enteral feedings, they were subsequently DC'd Comprehensive ROS unable to be obtained in this intubated and sedated gentleman. Exam Vital Signs Vital Sign - Last Date Time Temp Pulse Resp B/P Pulse Ox O2 Delivery O2 Flow Rate FiO2 08/11/16 04:36 76 104/61 92 100 08/11/16 04:30 36.7 22 Mechanical Ventilator Intake and Output 08/10/16 08/10/16 08/11/16 Cumulative From/Thru 15:00 23:00 07:00 08/07/16 18:07 - 08/11/16 06:19 Intake Total 1625 ml 1926 ml 37762 ml Output Total 965 ml 725 ml 2610 ml Balance 660 ml 1201 ml 02615 ml Intake Oral 0 ml IV Total 1055 ml 858 ml 35775 ml Tube Feeding 450 ml 868 ml 1607 ml Tube Irrigant 120 ml 200 ml 400 ml Output Urine Total 950 ml 725 ml 2595 ml Stool Total 0 ml 0 ml Gastric Drainage Total 15 ml 15 ml # Bowel Movements 0 0 Exam GEN: Intubated and sedated patient, no response to external stimuli Neck: Short thick neck, R IJ in place HEENT: pupils miotic and non responsive, no movement tracking, ET tube in place , moderate facial edema CV: Very distant heart sounds due to habitus and overlying ventilator breath sounds Resp: Very coarse rhoncorous breath sounds throughout worse since prior exam Abd: Morbidly obese abdomen, diminished BS 4Q Extr: Long hyperkeratotic toenails, cool extremities with weak peripheral pulses Neuro: Patient paralyzed and sedated, no response to external stimuli IVs and Medications IV Fluids 350ml NS delivered with IV medications Medications Reviewed: Medications were reviewed in detail Lab and Diagnostics Item Value Date Time Red Blood Count 4.42 mil/mm3 08/11/1645 Mean Corpuscular Volume 98.4 fL 08/11/1645 Mean Corpuscular Hemoglobin 32.1 pg 08/11/1645 Mean Corpuscular Hemoglobin Concent 32.6 % 08/11/16 05 Red Cell Distribution Width 17.1 % H 08/11/16 05 Neutrophils (%) (Auto) 81.6 % H 08/11/16 05 Lymphocytes (%) (Auto) 10.5 % L 08/11/16 05 Monocytes (%) (Auto) 6.7 % 08/11/16 05 Eosinophils (%) (Auto) 0.8 % 08/11/16 05 Basophils (%) (Auto) 0.1 % 08/11/16 05 Estimat Glomerular Filtration Rate 12 mL/min 08/11/16 05 Lactic Acid Level 1.5 mmol/L 08/11/16 05 Calcium Level 7.1 mg/dL L 08/11/16544 Phosphorus Level 5.8 mg/dL H 08/11/16 05 Magnesium Level 2.5 mg/dL 08/11/16 05 Total Bilirubin 0.6 mg/dL 08/11/16544 Aspartate Amino Transf (AST/SGOT) 41 U/L 08/11/16 05 Alanine Aminotransferase (ALT/SGPT) 54 U/L H 08/11/16 05 Alkaline Phosphatase 54 U/L 08/11/16 05 Total Protein 5.0 g/dL L 08/11/16 05 Albumin 2.7 g/dL L 08/11/16 05 Procalcitonin 1.81 ng/mL H 08/11/16 05 Result Diagram: 08/11/1654408/11/16544 Microbiology Blood cultures negative at 24 hrs MRSA nasal swab negative X-Rays, CTs and MRIs CTA chest([facility]) 1 no pericardial effusion or mediastinal hematoma. Normal caliber of the thoracic aorta. Mediastinal widening on chest x-ray corresponds to prominent mediastinal fat. 2. Small bilateral pleural effusions with dependent atelectasis. 3. Arthrosclerosis including prominent coronary artery atherosclerosis. Read by Kyle Lawrence M.D. CT of the head([facility]) 1. No intracranial bleed or mass effect. No acute findings Read by Kyle Lawrence M.D. Cervical spine without contrast([facility]) 1. Multilevel degenerative disc disease cervical spine without evidence of cervical spine fracture Kyle Lawrence M.D. X-RAY CHEST ONE VIEW, PORTABLE IMPRESSION: 1. Support lines and tubes are stable in position. 2. Pulmonary edema and/or diffuse bilateral pneumonia not significantly changed and small pleural effusions persist. Dictated by: Shyam LUNA Interpreted: Renetta Doe MD on 08/10/2016 at 9:06 Additional Diagnostics US ABDOMEN, LIMITED IMPRESSION: No definite sonographic abnormality seen involving the liver in this patient with history of prior hepatic laceration. If indicated repeat CT could be performed for more accurate assessment. Cholelithiasis without evidence for cholecystitis. Right renal cyst redemonstrated. Trace right pleural effusion. Dictated by: Shyam LUNA Interpreted: Shelby Macario MD on 08/09/2016 at 12:03 Approved by: Shelby Macario MD, PhD on 08/09/2016 at 14:29 VBG pH ____7.332 - 7.350 7.450 pCO2 ___34.6__ -mmHg 35.0 45.0 pO2 ___43.9__ -mmHg 69.0 116 HCO3- ___18.3__ -mmol/L 22.0 26.0 Assessment & Plan 86-year-old male who was found down by his and resuscitated in the field by EMS using epinephrine. Patient was intubated in the field and transferred to [facility] he underwent benign imaging started on cooling protocol that was interrupted due to transport. Patient has not manifested any meaningful signs of response to external stimuli. EEG performed 08/10/16 essentially reinforced clinical diagnosis of catastrophic anoxic brain injury reflecting the terminal nature of this event. Palliative care will continue to work with the patient's to facilitate compassionate extubation. Acute hypoxic respiratory failure; present on admission; ongoing -Patient found down and intubated in the field; likely secondary to cardiac arrhythmia -Initial ABG at [facility] was 7.31, 58.1, 78.2, 28.4 on FiO2 of 100, PEEP of 5, respiratory rate of 20, and tidal volume 500 -IVF and pressors to be titrated to MAP >65 -Tele monitoring -Repeat serial ABGs -EEG as above indicative of catastrophic anoxic brain injury -Palliative care consulted and is in discussion with patient's who appears to have poor insight into the terminal nature of the patient's condition Possible cardiac arrhythmia causing cardiac arrest; present on admission; ongoing -Patient has multiple syncopal episodes within the week as well as sense of impending doom -Patient was down for 30 minutes before noted respiratory arrest; overall picture suggestive of arrhythmia -Initial troponin was elevated at 0.169; downward trend -EKG showed atrial fibrillation at [facility] -Patient underwent cooling protocol, began rewarming 08/08 20:00 -propofol and norepinephrine to maintain sedation and pressure -Nimbex has been discontinued -Blood cultures negative Acute kidney injury; present on admission; ongoing -Likely due to perfusion deficit with prior component of intra-abdominal HTN -Unknown baseline as this is the first time that patient has been admitted in this hospital -Fluid resuscitation on admission -Will continue to track with BMPs Anion gap metabolic acidosis; present on admission; improving -Lactic acid of 2.7 on presentation likely responsible for the AG of 15 -IVF as above -blood cultures negative Acute leukocytosis; present on admission; ongoing -Patient arrived with a white count of 14 which is decreased from 15.2 at [facility] -Will continue to follow -Likely due to underlying community acquired pneumonia -Procalc is elevated and initially uptrending, now normalizing -Will continue Zosyn to cover possible aspiration component Type II diabetes; present on admission; ongoing -Reported from [facility] -Blood glucose has been stable without correction -A1c 6.4 Reported hepatitis with elevated transaminases and prolonged INR with possible cirrhosis; present on admission; ongoing -Patient's history is positive for hepatitis likely related to his chronic daily alcohol consumption, although disproportionate for acute hepatitis -Platelets 168, AST/ALT 141/136 on presentation, now trending towards normal -Hepatitis panel negative -US RUQ does not demonstrate previously described hepatic laceration, results as above Reported atrial fibrillation;present on admission; ongoing -EKG form [facility] reported at-fib -Repeat EKG had questionable junctional rhythm -Will follow -Tele monitoring Hypertension, chronic; present on admission; ongoing -Patient is currently hypotensive while on Propofol -Weaning back sedation, will adjust BP meds to compensate for likely BP increase Hyperlipidemia, chronic; present on admission; stable -Will continue home statin Morbid obesity, POA, chronic. Active -Will adjust medications accordingly -Complicates physical exam and auscultation Disposition: This is in all likelihood a terminal event for this patient, will attempt to guide family towards compassionate extubation. Pain Evaluation: Adequate Pain Control GI Prophylaxis: H2 joshua VTE Prophylaxis: Sub-Q Heparin (Unfractionated) VTE Mechanical Devices: Intermittant Pneumatic CD Resuscitation Status: CPR: Attempt Resuscitation Attending Statement The patient was seen and examined together with Dr. Huston on 08/11/16 and I agree with the history, exam and plan as outlined in the note above. Mac Huston DO Aug 11, 2016 09:15 Griselda Al DO Aug 11, 2016 19:12
--- NOTE | 2016-08-11 10:31 | NUR ---
NUTRITION FOLLOW-UP: Assess: 86 YO M admitted to CCU with cardiac arrest, requiring intubation and sedation. Pt was able to have TF started 08/09 and were running at goal. Overnight pt had thick, cream sputum out of ETT which was thought to be TF so TF was turned off. Pt had large BM and FMS was placed. Palliative Care is involved due to poor prognosis. EEG indicative of catastrophic anoxic brain injury. Wt has increased ~20 since admit due to fluids. PMHX: HTN, HLD, type 2 DM, psoriasis, hepatitis. DIET: NPO. LABS: Cl 109, CO2 14, Bun 66, radiology tech 4.92, Glu 138, Ca 7.1, phos 5.8, ALT 54, Alb 2.7 MEDICATIONS: Propofol currently running @ 33.1ml/hr to provide 873.8 kcal/day, Fentanyl, Pressor, lasix, albumin GI: BMx1 08/11 SKIN: No issues noted. NUTRITION SUPPORT: (CURRENTLY OFF) Glucerna 1.5 @ 40ml/hr providing 1320kcal (1975kcal w/propofol) and 72g pro (100% kcal and 68% pro needs) ANTHROPOMETRICS: Wt: 157.9 kg, BMI 52.9 kg/m2, Admit wt: 138.6 kg. Adj. BW: 87.2 kg, IBW: 70kg ESTIMATED NEEDS: VENT/BMI/SOUMYA (based on admit wt) Calories: 6866-5672 kcal/day (20-22 kcal/kg Adj. BW) Protein: 105-125 g/day (1.5-1.8 g/kg IBW) Fluids: 2180 ml/day (~25 ml/kcal) NUTRITION DIAGNOSIS: 1) Inadequate oral intake related to decreased ability to consume sufficient energy as evidenced by NPO/Vent status. --PERSISTS INTERVENTION: 1) Recommend re-start TF when medically appropriate 2) Adjust goal rate based on daily propofol rate 3) Will add of 1 packet of prosource protein TID to better meet pt's protein needs once TF re-started MONITOR/EVALUATE: NPO/Vent status, TF re-start, BM labs, POC, GI/nutrition status. Follow per high nutrition risk guidelines.
--- NOTE | 2016-08-11 10:37 | NUR ---
Palliative Care Telephone Note08/11/1709:30AM This commercial loan underwriter called and left message for pt.'s PCP, Dr. Maynard at [facility] in [place] ([phone]). Message noted that pt. is currently in CCU and may be closer to end of life. Requested that Dr. Maynard call Palliative Care office to discuss what he may know of pt.'s goals and also his impression of pt.'s 's cognition. Per Hospitalist team and other clinical staff, pt.'s is struggling with understanding the severity of pt.'s condition. Nahomy Medrano MSW, [facility] Palliative Care Services
--- NOTE | 2016-08-11 10:44 | PROG NOTE ---
[address] [address] PROGRESS NOTE PATIENT: MARK PANDA : 1930 MR#: [id number] ADMIT: 08/07/2016 JOB ID: [id number] DATE: 08/11/2016 PULMONARY CRITICAL CARE PROGRESS NOTE: The patient is an 86-year-old man who presented to the hospital with asystolic cardiac arrest on August 07, 2016, complicated by ARDS, anoxic encephalopathy. INTERVAL HISTORY: Underwent EEG yesterday which showed burst suppression pattern. Remains off all sedation except for low-dose propofol. REVIEW OF SYSTEMS: Unable to obtain. PHYSICAL EXAMINATION: Vital signs reviewed. Afebrile. Pulse 75, respirations 22, BP 94/57, sats 96% on 100% oxygen and 14 cm of PEEP. General: Intubated, unresponsive. Morbidly obese. Chest: Clear to auscultation. Abdomen distended, soft. LABORATORIES: Reviewed. WBC is slightly elevated to 13.1, hemoglobin 14.2, platelets 110. Chemistry reviewed. Creatinine continues to rise and is up to 4.9 from 3.9 yesterday, BUN is up to 66, bicarb 14. Arterial blood gas from this morning shows pH of 7.29, pCO2 of 31, pO2 of 76, bicarbonate of 15. Chest x-ray shows worsening bibasilar infiltrates and also dense left upper lobe collapse. ASSESSMENT AND RECOMMENDATIONS: 1. Asystolic cardiac arrest August 07, 2016. 2. Acute renal failure. 3. Hypotension/shock. 4. Aspiration pneumonia. 5. Adult respiratory distress syndrome. An 86-year-old man presenting with asystolic arrest on August 07, completed hypothermia protocol and remains unresponsive and comatose. Whenever the propofol is switched off, he starts to show twitching/myoclonic type activity. Electroencephalogram confirmed burst suppression, which is an extremely poor prognostic indicator with regards to anoxic encephalopathy and chances of recovery post cardiac arrest. Respiratory status continues to worsen. He is on 100% oxygen with 14 cm of PEEP, and chest x-ray today shows left upper lobe collapse. I asked Respiratory Therapy to do some chest physiotherapy, if possible. He continues to progress with regards to renal dysfunction as well. In the setting of multiorgan failure in this elderly gentleman with asystolic arrest and high likelihood of comatose state or, at best, persistent vegetative state due to anoxic encephalopathy, my recommendation would be to transition to comfort measures. We are trying to get back in touch with his and meet with her again today to explain all of the findings on the electroencephalogram. Palliative Care is assisting us in this, and I appreciate their help. CRITICAL CARE TIME: 60 minutes. CODE STATUS: He is still a FULL CODE at this point.
--- NOTE | 2016-08-11 11:07 | DRSVH ---
PROCEDURE: X-RAY CHEST ONE VIEW, PORTABLE ([id number]) INDICATIONS: intubated patient TECHNIQUE: One view of the chest was acquired. COMPARISON: [facility], CR, XR CHEST 1VW (PORTABLE), 08/10/2016, 5:29. FINDINGS: Surgical changes and devices: ETT tip projected roughly 5.2 cm above the jorge. Stable position a r ight IJ CVL. Nasogastric tube traverses the GE junction. Lungs and pleura: There is near-complete opacification of the left long with minimal aeration periphe rally within the midlung left lung base. Interstitial airspace opacifications seen throughout the ri ght lung. No pneumothorax. Small pleural effusions likely present. Mediastinum: Mediastinal contours appear normal. Heart size is normal. Bones and chest wall: No suspicious bony lesions. Overlying soft tissues appear unremarkable. IMPRESSION: 1. Near complete opacification of left lung suggesting possible atelectasis which could be related to endobronchial plugging. Correlate clinically. 2. Persistent interstitial and air space opacities within the right lung consistent with pneumonia an d/or pulmonary edema. Dr. Al given results at 0930 hrs. 08/11/2016. Dictated by: Shyam RODARTE Interpreted: Joel Bah MD on 08/11/2016 at 9:17 Approved by: Joel Bah M.D. on 08/11/2016 at 11:04
--- NOTE | 2016-08-11 12:29 | NUR ---
BRIANA: Spoke with [employer] DRIVER and asked her to follow up with NOK, patient is on vent and can not sign or acknowledge BRIANA at this time.
--- NOTE | 2016-08-11 15:03 | NUR ---
Remained on vent support this morning, BP supported with Levophed at 0.1mcg, continued seizure-like activity when sedation lightened. Unresponsive. Transitioned to comfort care per 's wishes, extubated at 1401, no pulse, no respirations at 1422. Care team and international account representative support provided, remains at bedside at this time. [facility], [place] notified.
--- NOTE | 2016-08-11 15:39 | NUR ---
spiritual care: staff request When I arrived at pt's room pt had a very low heart rate. Prayed for pt and commended his spirit to God. noticed that after the prayer the heart rate went to 0. She took it as a sign of God's love and care of her . Provided support of at bedside. Blessed her before leaving the room.
--- NOTE | 2016-08-11 15:55 | PCM.DC.MEX ---
Discharge Summary Date of Service Aug 11, 2016 Dates of Hospitalization Date of Hospital Admission Aug 07, 2016 at 16:02 Date of Expiration: Aug 11, 2016 Time of Expiration: 14:22 Providers: Admitting Physician: Griselda Al DO Primary Care Physician: Kyle Maynard MD Attending Physician: Griselda Al DO Diagnosis at Time of Acute hypoxic respiratory failure Cardiac arrest with anoxic brain injury Additional Diagnosis Acute hypoxic respiratory failure Possible cardiac arrhythmia causing cardiac arrest Acute kidney injury Anion gap metabolic acidosis Acute leukocytosis Type II diabetes Reported hepatitis with elevated transaminases and prolonged INR with possible cirrhosis Reported atrial fibrillation Hypertension, chronic Hyperlipidemia, chronic Morbid obesity Procedures XRay, CTs & MRIs CTA chest([facility]) 1 no pericardial effusion or mediastinal hematoma. Normal caliber of the thoracic aorta. Mediastinal widening on chest x-ray corresponds to prominent mediastinal fat. 2. Small bilateral pleural effusions with dependent atelectasis. 3. Arthrosclerosis including prominent coronary artery atherosclerosis. Read by Kyle Lawrence M.D. CT of the head([facility]) 1. No intracranial bleed or mass effect. No acute findings Read by Kyle Lawrence M.D. Cervical spine without contrast([facility]) 1. Multilevel degenerative disc disease cervical spine without evidence of cervical spine fracture Kyle Lawrence M.D. X-RAY CHEST ONE VIEW, PORTABLE IMPRESSION: 1. Support lines and tubes are stable in position. 2. Pulmonary edema and/or diffuse bilateral pneumonia not significantly changed and small pleural effusions persist. Dictated by: Shyam Solis [facility] Interpreted: Renetta Doe MD on 08/10/2016 at 9:06 Cardiac Echo Impression Interpretation Summary 1. Normal left ventricular size with mild LVH and globally reduced LV systolic function which is somewhat difficult to estimate (estimated EF 30- 35%) 2. Mildly dilated right ventricle with moderately reduced systolic function. 3. Evidence for moderate to severe aortic stenosis with trace insufficiency There is no old study for comparison Reading Physician:07:02 PM Other Diagnostics US ABDOMEN, LIMITED IMPRESSION: No definite sonographic abnormality seen involving the liver in this patient with history of prior hepatic laceration. If indicated repeat CT could be performed for more accurate assessment. Cholelithiasis without evidence for cholecystitis. Right renal cyst redemonstrated. Trace right pleural effusion. Dictated by: Shyam Solis RRA Interpreted: Shelby Macario MD on 08/09/2016 at 12:03 Approved by: Shelby Macario MD, PhD on 08/09/2016 at 14:29 VBG pH ____7.332 - 7.350 7.450 pCO2 ___34.6__ -mmHg 35.0 45.0 pO2 ___43.9__ -mmHg 69.0 116 HCO3- ___18.3__ -mmol/L 22.0 26.0 Brief History 86 -year-old male with hypertension, hyperlipidemia, type II diabetes, and uncharacterized hepatitis, who transferred from [facility] after being found unconscious and in respiratory arrest by his . History is obtained by the . She states that this morning around 11:00 she went to check on her who is lying in bed and noticed his tongue was protruding from his mouth. She noticed he was not breathing and began CPR on the bed. She called 911 and EMS arrived reporting asystole. Patient was given 2 g of epinephrine with ROSC, intubated in the field, and transported to [facility]. On arrival the patient was not responsive. Cooling protocol was initiated, patient was placed on dopamine via peripheral line and transferred to [facility] was initiated. On interview with the she states that the patient has fallen twice last week. The first time was at the top of a staircase which he fell down after syncopal episode, but did not seek medical attention. The second time was outside of [facility] where he had a syncopal episode, hitting his head but did not seek medical attention. Per the the patient has also been stating that he is going to multiple times over this last week. She states that he has had a negative review of systems except for some abdominal pain due to his nighttime beer drinking. She states he drinks 2 beers per night. also stated later that the patient had at least 1 episode of hematochezia Hospital Course 86-year-old male who was found down by his and resuscitated in the field by EMS using epinephrine. Patient was intubated in the field and transferred to [facility] he underwent benign imaging started on cooling protocol that was interrupted due to transport. Patient was sedated with propofol and fentanyl and central line access was obtained with a right arm picc line. Patient was again placed on cooling protocol and completed a full 48 hour course. Questionable seizure activity was noted during protocol, propofol was increased and Nimbex and ativan were also utilized to control tremor vs seizure activity. The patient was rewarmed and continued to show signs of seizure activity. He also showed additional signs of kidney injury and hepatic injury, although this hepatic injury was relatively mild. EEG was performed and verbal report from Dr. Edward Reddy (neurology) to Dr. Nanci Alberto (alumni relations coordinator) revealed a burst suppression pattern consistent with severe and catastrophic anoxic brain injury. This was discussed with the patient's who ultimately decided that extubation and withdrawal of care was the correct course. Patient was extubated and immediately at 1422. Dr. Mac Mendoza from palliative care was also involved in the care of this patient and discussions about withdrawing care. Exam Test 08/08/16 01:56 08/08/16 02:00 08/08/16 14:00 08/08/16 20:20 Pro-B-Type Natriuretic Peptide 3070pg/mL (0-486) Hemoglobin A1c 6.4% (4.8-5.6) Hepatitis A IgM Antibody Negative (Negative) Hepatitis B Surface Antigen Negative (Negative) Hepatitis B Core IgM Antibody Negative (Negative) Hepatitis C Antibody <0.1s/co ratio (0.0-0.9) Hepatitis C Comment Comment (.) Triglycerides Level 211mg/dL (0-149) Cholesterol Level 88mg/dL (100-199) LDL Cholesterol, Calculated 22.800mg/dL (0-99) VLDL Cholesterol 42.200mg/dL HDL Cholesterol 23mg/dL (>39) Cholesterol/HDL Ratio 3.83 (0.0-4.4) Total Creatine Kinase 169U/L (21-232) Creatine Kinase MB 8.4ng/mL (0.0-10.4) Creatine Kinase MB % 5.0% (0.0-5.0) Troponin T 0.110ug/L (0.0-0.011) Test 08/10/16 13:22 08/11/16 05:45 Prealbumin 12mg/dL (20-40) White Blood Count 13.1th/mm3 (3.8-10.1) Red Blood Count 4.42mil/mm3 (4.40-5.80) Hemoglobin 14.2g/dL (13.8-17.2) Hematocrit 43.5% (41.0-50.0) Mean Corpuscular Volume 98.4fL (81-100) Mean Corpuscular Hemoglobin 32.1pg (27.0-35.0) Mean Corpuscular Hemoglobin Concent 32.6% (32.0-37.0) Red Cell Distribution Width 17.1% (12.3-15.4) Platelet Count 110bil/L (150-400) Neutrophils (%) (Auto) 81.6% (40-74) Lymphocytes (%) (Auto) 10.5% (14-46) Monocytes (%) (Auto) 6.7% (4-12) Eosinophils (%) (Auto) 0.8% (0-5) Basophils (%) (Auto) 0.1% (0-3) Prothrombin Time 12.3sec (8.1-12.5) Prothromb Time International Ratio 1.15ratio Sodium Level 144mEq/L (134-144) Potassium Level 4.6mEq/L (3.5-5.2) Chloride Level 109mEq/L (97-108) Carbon Dioxide Level 14mmol/L (18-29) Blood Urea Nitrogen 66mg/dL (8-27) Creatinine 4.92mg/dL (0.76-1.27) Estimat Glomerular Filtration Rate 12mL/min (>59) Glucose Level 138mg/dL (60-99) Lactic Acid Level 1.5mmol/L (0.4-2.0) Calcium Level 7.1mg/dL (8.5-10.1) Phosphorus Level 5.8mg/dL (2.5-4.9) Magnesium Level 2.5mg/dL (1.6-2.6) Total Bilirubin 0.6mg/dL (0.0-1.2) Aspartate Amino Transf (AST/SGOT) 41U/L (0-50) Alanine Aminotransferase (ALT/SGPT) 54U/L (0-44) Alkaline Phosphatase 54U/L (25-160) Total Protein 5.0g/dL (6.4-8.4) Albumin 2.7g/dL (3.4-5.0) Procalcitonin 1.81ng/mL (0.00-0.08) Microbiology Results Blood cultures negative at 24 hrs MRSA nasal swab negative Time spent Greater than 35 minutes Attending Statement The patient was seen and examined together with Dr. Jimenez and Robel on 08/11/16 and I agree with the history, exam and plan as outlined in the note above. copies to: Kyle Maynard MD, Michael R DO Aug 11, 2016 15:55 Griselda Al DO Aug 11, 2016 19:02
--- NOTE | 2016-08-11 16:04 | PCM.PALLBR ---
Palliative Care Recommendation Summary of palliative recommendations: 08/11/16- After multiple lengthy discussions with the medical and critical care teams, his prior outpatient physicians as well as with the patient's at bedside, she made the decision to discontinue aggressive care, carry out compassionate extubation and comfort measures. This was done and patient rapidly and peacefully with spouse at bedside. 08/10/16- Obtundation/unresponsive s/p cardiopulm arrest on vent with multisystem ds Still on sedation but has very poor prognosis with time down, found in asystole, now with possible sz activity vs myoclonus and not awakening with drop in meds. ARF worsening and suspect had at baseline due to initial labs. Mild to moderate hepatic dysfxn-based on labs I suspect this is chronic.?ETOH Cardiac dysfxn with probable pulm edema-goal is to diurese if tolerated by BP GOC-patient had indicated a number of times to his that he did not want o come into the hospital and that he wanted to at home. We have no documents confirming this. Discussion with his - she continues to have limited understanding on the limits of care if he is not going to be able to recover. She acknowledges he did not want to be in hospital or on "machines" but then will state she wants him on vent even if no likelihood of neuro recovery. She has also picked a seemingly arbitrary day--August 23-to keep him on the vent etc. She states she understands swedish well and is adamant that she does not want an supervisor whipped topping for possible discussion of w/d of care in the next 1-2 days. Plan will be to have another discussion once sedation is off and neuro review. Pt may define his own fate but at this time is FULL CODE-although nearly at max of treatment. -Symptom management (Pain/other) ventilator dependent and unarousable after cardiac arrest. Suspect baseline dysrhythmia with multiple syncopal episodes prior. No evidence for seizure activity at this time -DPOA/Advanced Directives/POLST-unclear if any of this paperwork has been completed. Decision making would fall by default to his -Family/emotional support-his describes very little in social support. She talks to her sister who lives in [place]. 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 Advanced Care Planning Address: Comfort care Total time 90 minutes; >50% face to face with patient and family, providing counselling regarding plans and recommendations, and in care coordination with his medical teams. Of the above total time, 70 minutes counseling for advanced care planning with the patients spouse and then coordinating/carrying out compassionate extubation and comfort care Palliative Brief Note Date of Service Aug 11, 2016 . Returned to reevaluate patient. Prior to visiting, reviewed his updated records in the EMR in detail, spoke with his bedside nurse, reviewed his case with medical and pulmonary/critical care team members. As the day progressed, multiple return visits for reassessment, to meet with the patient's after she arrived, and follow-up with nursing and medical team as he is transitioned to comfort care with compassionate extubation. Also called and spoke with his past PCP, Dr. Maynard (actually noted he had seen the patient only once and that he was noncompliant with follow-up- we did review details of that single visit however) and then also spoke with the patient's prior PCP Dr. Delmer Hull who now works at [facility]. He was able to provide a lot of background regarding the patient and his spouse. Both physicians noted that the patient had suffered from quite significant and progressive dementia over the last several years, a status confirmed by his and I talked with her today. When patient's came into the hospital today, reviewed my conversations with Drs. Maynard and Kurtis with her- she appreciated their support and input. We then discussed her wishes further- her thinking had evolved over the last several days as his status deteriorated, and on her own last evening she made the decision that it was time to allow him to pass. She was quite appropriate and seemed fully decisional in her thinking. We reviewed patient's current status in some detail, answering questions she had, and this conversation only strengthened her wish to allow him to pass. On my exam today, he was a morbidly obese individual, unresponsive and on the ventilator. Vital signs noted. Skin was warm and dry. Head and neck exam remarkable for his obesity and some diffuse puffiness. Lungs with scattered dependent crackles. Heart sounds regular. Abdomen obese, without evident tenderness or rigidity. Extremities with diffuse puffiness and edema. Lab and imaging studies reviewed in detail. Mac Mendoza MD Aug 11, 2016 16:04
--- NOTE | 2016-08-15 11:19 | ABG ---
DateTimeAnalyzed 22:52:00 -_ pH ____7.336 - pCO2 ___41.6__ -mmHg pO2 ___51.1__ -mmHg HCO3- ___21.6__ -mmol/L ABE ___-3.5__ -mmol/L tHb ___15.4__ -g/dL O2Hb ___79.8__ -% COHb ____1.1__ -% MetHb ____0.9__ -% sO2 ___81.4__ -% FIO2 __100.0__ -% Drawn By RN - Date/Time Notified____ 22:57:00 -_ Notified By BLF - Notified Whom JONA ARUNA RN -____ B 761 -mmHg tO2 ___17.2__ -Vol% Zia test N/A -
== END 2016-08-11 14:22 | disposition expired | DRG 208 ==
LOC: PCC 16:02 → CCU 16:16
PROVIDERS: ADMIT Neuromusculoskeletal Medicine & OMM; ATTEND Neuromusculoskeletal Medicine & OMM
PROC: 5A1945Z Respiratory Ventilation, 24-96 Consecutive Hours (ICD-10-PCS; principal; 2016-08-07)
PROC: 4A033R1 Measurement of Arterial Saturation, Peripheral, Percutaneous Approach (ICD-10-PCS; 2016-08-07)
DX: J96.01 Acute respiratory failure with hypoxia (principal); N17.9 Acute kidney failure, unspecified; E87.2 Acidosis; G93.1 Anoxic brain damage, not elsewhere classified; Z68.43 Body mass index [BMI] 50.0-59.9, adult; I46.9 Cardiac arrest, cause unspecified; E11.9 Type 2 diabetes mellitus without complications; I48.91 Unspecified atrial fibrillation; I10 Essential (primary) hypertension; E78.5 Hyperlipidemia, unspecified; E66.01 Morbid (severe) obesity due to excess calories; Z51.5 Encounter for palliative care